=== PATIENT | female | born 1985 | race Caucasian/White ===

== ENCOUNTER 2016-08-08 10:01 | Emergency (ER) | payer MEDICAID ==
[2016-08-08 10:17] VITALS: BP 110/43
[2016-08-08] MEDS ORDERED: BUPIVACAINE HCL 0.5%-EPI 1:200000 INJ/PF 30 ML VIAL INJ ONE (10:53)
[2016-08-08] MEDS ORDERED: IBUPROFEN 800 MG TABLET PO ONE (10:54)
--- NOTE | 2016-08-08 10:59 | ER Document Report ---
ED General - General Chief Complaint: Toothache Stated Complaint: TOOTH PAIN TRAVEL OUTSIDE OF THE [place] IN LAST 30 DAYS: No - HPI Patient complains to provider of: dental pain Notes: Patient coming in for evaluation of dental pain. Patient was evaluated for dental pain previously does see a dentist and is scheduled to see oral medical facial surgeon for dental extraction on 47. Patient states since that time increased pain patient is requesting Percocet for pain control. Patient denies taking Tylenol Motrin for pain control denies fevers chills nausea vomiting - Related Data Allergies/Adverse Reactions: Penicillins Allergy (Verified 06/12/16 15:01) tramadol Allergy (Verified 06/12/16 15:01) Past Medical History - Social History Smoking Status: Unknown if Ever Smoked Family History: Arthritis, CAD, Hyperlipidemia, Hypertension Renal/ Medical History: Reports: Hx Kidney Stones, Hx Ovarian Cysts GI Medical History: Reports: Hx Gastritis, Hx Gastroesophageal Reflux Disease Musculoskeltal Medical History: Reports Hx Arthritis, Reports Hx Musculoskeletal Trauma Psychiatric Medical History: Reports: Hx Anxiety, Hx Depression, Hx Post Traumatic Stress Disorder Traumatic Medical History: Reports: Hx Fractures - Right arm Past Surgical History: Reports: Hx Abdominal Surgery - Exploratory lap-negative diagnosed interstitial cystitis, Hx Adenoidectomy, Hx Gynecologic Surgery, Hx Myringotomy, Hx Tonsillectomy - Immunizations Immunizations up to date: Yes Hx Diphtheria, Pertussis, Tetanus Vaccination: Yes Review of Systems - Review of Systems Constitutional: No symptoms reported EENT: Other - Dental pain Cardiovascular: No symptoms reported Respiratory: No symptoms reported Gastrointestinal: No symptoms reported Genitourinary: No symptoms reported Female Genitourinary: No symptoms reported Musculoskeletal: No symptoms reported Skin: No symptoms reported Hematologic/Lymphatic: No symptoms reported Neurological/Psychological: No symptoms reported -: Yes All other systems reviewed and negative Physical Exam - Vital signs Vitals: Temp Pulse Resp BP Pulse Ox 97.8 F 80 16 110/43 L 100 08/08/16 10:16 08/08/16 10:16 08/08/16 10:16 08/08/16 10:16 08/08/16 10:16 Interpretation: Normal - General General appearance: Appears well, Alert - HEENT Head: Normocephalic, Atraumatic Eyes: Normal Pupils: PERRL Nasal: Normal Mouth/Lips: Normal Mucous membranes: Normal Pharynx: Normal Neck: Normal Notes: Patient does have a dental Hayley tooth #31 no signs of gingival cellulitis no signs of dental abscess. - Respiratory Respiratory status: No respiratory distress Chest status: Nontender Breath sounds: Normal Chest palpation: Normal - Cardiovascular Rhythm: Regular Heart sounds: Normal auscultation Murmur: No - Abdominal Inspection: Normal Distension: No distension Bowel sounds: Normal Tenderness: Nontender Organomegaly: No organomegaly - Back Back: Normal, Nontender - Extremities General upper extremity: Normal inspection, Nontender, Normal color, Normal ROM , Normal temperature General lower extremity: Normal inspection, Nontender, Normal color, Normal ROM , Normal temperature, Normal weight bearing. No: Erum's sign - Neurological Neuro grossly intact: Yes Cognition: Normal Orientation: AAOx4 Leia Coma Scale Eye Opening: Spontaneous Leia Coma Scale Verbal: Oriented Leia Coma Scale Motor: Obeys Commands Wall Coma Scale Total: 15 Speech: Normal Motor strength normal: LUE, RUE, LLE, RLE Sensory: Normal - Psychological Associated symptoms: Normal affect, Normal mood - Skin Skin Temperature: Warm Skin Moisture: Dry Skin Color: Normal Course - Re-evaluation Re-evalutation: 08/08/16 15:08 Offered patient dental block and Tylenol 3 for her pain control. Patient initially accepted dental block then refused dental block. Patient also refused Tylenol 3. Explained to the patient that the only pain medication will give for dental pain is Motrin 800 and Tylenol 3. Patient states Tylenol 3 would not alleviate her pain. Explained to the patient that she can follow-up your dentist for further pain control. - Vital Signs Vital signs: Temp Pulse Resp BP Pulse Ox 97.8 F 80 16 110/43 L 100 08/08/16 10:16 08/08/16 10:16 08/08/16 10:16 08/08/16 10:16 08/08/16 10:16 Discharge - Discharge Clinical Impression: Toothache Condition: Good Disposition: HOME, SELF-CARE Instructions: Toothache ([facility]), [facility], Oral Narcotic Medication ([facility]), Chronic Pain Control ([facility]) Additional Instructions: Follow-up with your dentist for further evaluation of your dental pain. Take medications as prescribed Please be aware that this is a chronic condition which we do not provide pain medication for here in the ER. Subsequent visits to the ER may not result in specific pain medications being prescribed to you. Prescriptions: Acetaminophen with Codeine [Tylenol #3 Tablet] 1 each PO Q4HP PRN #10 tablet PRN Reason: Ibuprofen [Motrin 800 mg Tablet] 800 mg PO MEALS #90 tablet Forms: Return to Work
== END 2016-08-08 11:00 | disposition home or self-care (01) ==
LOC: ER 10:01
DX: K08.89 Other specified disorders of teeth and supporting structures (principal)
CPT/HCPCS: 99282

== ENCOUNTER 2016-08-13 14:14 | Outpatient (CLI) | payer MEDICAID ==
[2016-08-13 15:10] LABS: APPEARANCE,URINE CLEAR; BILIRUBIN,URINE NEGATIVE (NEGATIVE); GLUCOSE, URINE NEGATIVE (NEGATIVE); KETONES,URINE NEGATIVE (NEGATIVE); LEUKOCYTE ESTERASE,URINE MODERATE (NEGATIVE); NITRITE,URINE NEGATIVE (NEGATIVE); PROTEIN,URINE NEGATIVE (NEGATIVE); URINE SPECIFIC GRAVITY 1.009; UROBILINOGEN,URINE NEGATIVE mg/dL (<2.0)
[2016-08-13 15:23] LABS: ABSOLUTE EOSINOPHILS # (AUTO) 0.1 10^3/uL (0.0-0.6); ABSOLUTE LYMPHOCYTES (AUTO) 1.9 10^3/uL (0.5-4.7); ABSOLUTE MONOCYTES (AUTO) 0.5 10^3/uL (0.1-1.4); ABSOLUTE NEUT (AUTO) 6.5 10^3/uL (1.7-8.2); BASOPHILS % (AUTO) 0.1 % (0-2); EOSINOPHILS % (AUTO) 1.1 % (0-6); HEMATOCRIT 29.8 % (36.0-47.0); HEMOGLOBIN 9.8 g/dL (12.0-15.5); HGB HCT DIFFERENCE -0.4; LYMPHOCYTES % (AUTO) 20.8 % (13-45); MEAN CORPUSCULAR VOLUME 91 fl (80-97); RED BLOOD COUNT 3.28 10^6/uL (3.72-5.28); RED CELL DISTRIBUTION WIDTH 13.3 % (11.5-14.0); WHITE BLOOD COUNT 9.1 10^3/uL (4.0-10.5)
[2016-08-13 15:27] LABS: URINE BARBITURATES SCREEN NEGATIVE; URINE METHADONE SCREEN NEGATIVE; URINE PHENCYCLIDINE SCREEN NEGATIVE
[2016-08-13 15:33] LABS: ALANINE AMINOTRANSFERASE 17 U/L (9-52); ALBUMIN 3.6 g/dL (3.5-5.0); ALKALINE PHOSPHATASE 72 U/L (38-126); ASPARTATE AMINO TRANSFERASE 13 U/L (14-36); BILIRUBIN,TOTAL 0.3 mg/dL (0.2-1.3); LIPASE 32.8 U/L (23-300); TOTAL PROTEIN 5.6 g/dL (6.3-8.2)
[2016-08-13 15:35] LABS: AMYLASE < 30 U/L (30-110)
--- NOTE | 2016-08-13 16:00 | L&D Flow Sheet ---
LD Flowsheet Datetime Report Generated by CPN: 08/13/2016 16:00 Datetime: 08/13/2016 15:53 Patient Position/Activity: Right Tilt; Low Fowlers (Shaneka Sunflower, RN) Datetime: 08/13/2016 15:38 Vital Signs Stage of : Labor (Shaneka Davison, MÓNICA) NBP Sys/Olesya/Mean (mmHg): 99 (QS system process) : 55 (QS system process) : 73 (QS system process) Pulse: 68 (QS system process) Respirations: 14 (Shaneka Davison, MÓNICA) LaborFlag: Labor (QS system process) Datetime: 08/13/2016 15:30 Uterine Activity Monitor Mode: External (Shaneka Davison RN) Frequency (min): none (Shaneka Davison, MÓNICA) Resting Tone (Palpate): Relaxed (Shaneka Davison, MÓNICA) Contraction Comments: patient denies; no contrcations noted on monitor (Shaneka Davison RN) Assessment A Monitor Mode: External US (Shaneka Laney, RN) FHR Baseline Rate : 130 (Shaneka Sunflower, RN) FHR Baseline Changes: No Baseline Change (Shaneka Sunflower, RN) Variability: Moderate 6-25 bpm (Shaneka Sunflower, RN) Accelerations: 15X15 (Shaneka Laney, RN) Decelerations: None (Shaneka Laney, RN) Datetime: 08/13/2016 15:24 Communication Communication: Report Given to @ Ashtynricardo Conte, CNM (Shaneka Laney, RN) Provider Notified (Name): Ashtyn Conte CNM (Shaneka Davison RN) Notification Reason: Status Update; Status; Labor Status; Membrane Status; Uterine Activity; Lab/Diagnostic Study; Other (Shaneka Davison RN) Communication Comments: Informed of patient overall OB history, chief complaints, reactive FHT, blood pressure, and lab work. (Shaneka Davison RN) Datetime: 08/13/2016 15:13 Vital Signs Stage of : Labor (Shaneka Davison RN) NBP Sys/Olesya/Mean (mmHg): 83 (QS system process) : 44 (QS system process) : 58 (QS system process) Pulse: 72 (QS system process) Respirations: 16 (Shaneka Davison RN) LaborFlag: Labor (QS system process) Datetime: 08/13/2016 15:08 Vital Signs Stage of : Labor (Shaneka Laney, RN) NBP Sys/Olesya/Mean (mmHg): 89 (QS system process) : 49 (QS system process) : 65 (QS system process) Pulse: 73 (QS system process) Respirations: 12 (Shaneka Laney, RN) LaborFlag: Labor (QS system process) Datetime: 08/13/2016 15:00 Uterine Activity Monitor Mode: External; Palpation (Shaneka Laney, RN) Frequency (min): none (Shaneka Sunflower, RN) Resting Tone (Palpate): Relaxed (Shaneka Sunflower, RN) Contraction Comments: patient denies feeling contractions; no contractions noted on monitor (Shaneka Sunflower, RN) Assessment A Monitor Mode: External US (Shaneka Sunflower, RN) FHR Baseline Rate : 135 (Shaneka Laney, RN) FHR Baseline Changes: No Baseline Change (Shaneka Laney, RN) Variability: Moderate 6-25 bpm (Shaneka Sunflower, RN) Accelerations: 15X15 (Shaneka Laney, RN) Decelerations: None (Shaneka Laney, RN) Comments: reports positive movement; audible movement noted (Shaneka Sunflower, RN) Communication Communication: RN at Bedside (Shaneka Laney, RN) Datetime: 08/13/2016 14:44 Monitor Interventions for UA: Pierson Adjusted (Shaneka Sunflower, RN) Assessment A Monitor Mode: External US (Shaneka Laney, RN) Monitor Interventions for FHR: Ultrasound Adjusted (Shaneka Sunflower, RN) FHR Baseline Rate : 140 (Shaneka Sunflower, RN) Variability: Moderate 6-25 bpm (Shaneka Laney, RN) Accelerations: 15X15 (Shaneka Sunflower, RN) Decelerations: None (Shaneka Sunflower, RN) Pain Pain Scale: 5 (Shaneka Davison, RN) Pain Presence: Intermittent (Shaneka Davison, RN) Pain Type: Sharp (Shaneka Davison, RN) Pain Location: Abdomen; Back (Shaneka Davison, RN) Pain Goal: 1 (Shaneka Davison, RN) Pain Relief Measures: Comfort Measures (Shaneka Davison, RN) Vaginal Exam Vaginal Bleeding: None (Shaneka Davison, ) Maternal Assessment Level of Consciousness: Fully Conscious (Shaneka Davison, RN) DTR's/Clonus: DTRs 2+; No Clonus (Shaneka Davison, RN) Headache: Denies (Shaneka Davison, RN) Breath Sounds, Left: Clear and Equal (Shaneka Davison, RN) Breath Sounds, Right: Clear and Equal (Shaneka Davison, RN) Nausea/Vomiting: Present (Shaneka Davison, RN) RUQ Epigastric Pain: Present (Shaneka Davison, RN) Patient Care IV/Blood Work: Labs Drawn (Shaneka Davison RN) Oxygen Method: Room Air (Shaneka Davison RN) Patient Position/Activity: Left Tilt; Low Fowlers (Shaneka Davison, MÓNICA) Comfort Measures: Breathing/Relaxation; Family Support (Shaneka Davison RN) I/O Interventions: Clear Liquids Given (Shaneka Davison RN) Teaching Instructional Method: Verbal; Patient Instructed; Family/Support Person Instructed; Verbalized Understanding (Shaneka Davison RN) Plan of Care: Plan of Care Discussed (Shaneka Davison RN) Unit Routine: Gerald to Room; Call Cordero; Bed; Unit Personnel; Handwashing; Flu/Illness Precautions; Monitoring; Safety/Fall Risk Prevention; Bathroom Privileges (Shaneka Davison, MÓNICA) Pain Management: Pain Scale/Goals; Comfort Measures (Shaneka Davison RN) Related: Common Discomforts of ; Maternal Physical Changes; Maternal Emotional Changes; Nutrition; Hydration; Activity and Rest (Shaneka Davison RN) LaborFlag: Labor (QS system process) Datetime: 08/13/2016 14:38 NBP Sys/Olesya/Mean (mmHg): 97 (QS system process) : 50 (QS system process) : 68 (QS system process) Pulse: 59 (QS system process) LaborFlag: Labor (QS system process)
--- NOTE | 2016-08-14 04:45 | L&D Flow Sheet ---
LD Flowsheet Datetime Report Generated by CPN: 08/14/2016 04:45 Datetime: 08/13/2016 18:15 Stage of : Labor (Shaneka Davison RN) Provider Notified (Name): Dr. Whitney called and instructed for patient to followup for repeat abdominal ultrasound after delivery for re-evaluation and stability of gall bladder polyps. Also instructed to establish routine and compliant care. Patient was instructed to use warm compresses, OTC tylenol, and chiropractor for chronic low back pain. Patient was again offered Tylenol with codeine two tablets PO upon discharge of which she refused and stated "the only thing that helps is Percocet" which Dr. Whitney was asked and declined to order at this time. Patient appeared upset and crying as she left the unit. Patient was reassured and all questions answered. (Shaneka Davison RN) Datetime: 08/13/2016 18:04 Stage of : Labor (Jerica Jang RN) Provider Notified (Name): Dr. Whitney returned phone call and notified of abdominal ultrasound results of no gallstones, gallbladder wall thickening or pericholecystic fluid with Tiny gallbladder polyps are present. Stated he will call back with further orders (Jerica Jang RN) Datetime: 08/13/2016 18:00 Stage of : OB Triage (Shaneka Davison RN) Pain Scale: 3 (Shaneka Davison RN) Pain Presence: Intermittent (Annotations: chronic; tylenol offered; patient refused) (Shaneka Davison RN) Pain Type: Cramping; Sharp; Ache (Shaneka Davison RN) Pain Location: Back (Shaneka Davison RN) Pain Goal: 1 (Shaneka Davison RN) Pain Relief Measures: Comfort Measures (Shaneka Davison RN) LaborFlag: OB Triage (QS system process) Datetime: 08/13/2016 17:50 Stage of : Labor (Shaneka Davison RN) Communication: Call/Page Placed to Provider (Shaneka Davison RN) Provider Notified (Name): Dr. Whitney called; left message (Shaneka Davison RN) Datetime: 08/13/2016 17:12 Stage of : Labor (Shaneka Davison RN) Patient Position/Activity: Patient back to L_D room 3 from ultrasound. Awaiting ultrasound results (Shaneka Davison RN) Datetime: 08/13/2016 16:50 Stage of : Labor (Shaneka Davison RN) Patient Position/Activity: patient to ultrasound via wheelchair accompanied by Almaz Barbosa CNA and friend (Shaneka Davison RN)
--- NOTE | 2016-08-14 04:45 | Antepartum Discharge Summary ---
Antepartum DC Datetime Report Generated by CPN: 08/14/2016 04:45 DIET/ACTIVITY/RESTRICTIONS Diet: Regular (08/13/2016 18:29:Shaneka Davison, RN) Activity: Normal Activity (08/13/2016 18:29:Shaneka Perdueard, RN) TEACHING/INSTRUCTIONS/REFERRALS Instructions Given To: patient and friend (08/13/2016 18:29:Shaneka Davison, RN) Instructions Understood: Patient Verbalized Understanding; Support Person Verbalized Understanding (08/13/2016 18:29:Shaneka Davison RN) Referrals: None (08/13/2016 18:29:Shaneka Davison RN) Educational Materials- Other: kick counts and provided copy of abdominal ultrasound results with written instructions to followup for repeat ultrasound after deliverey of baby (08/13/2016 18:29:Shaneka Davison RN) DISCHARGE INFORMATION Discharged AMA: No (08/13/2016 18:29:Shaneka Davison RN) Discharge Date/Time: 08/13/2016 18:22 (08/13/2016 18:29:Shaneka Davison RN) Discharged To: Home (08/13/2016 18:29:Shaneka Davison RN) Discharge Provider Name: Dr. Whitney (08/13/2016 18:29:Shaneka Davison RN) Accompanied By: friend (08/13/2016 18:29:Shaneka Davison RN) Discharge Method: Ambulatory (08/13/2016 18:29:Shaneka Davison RN) Condition: Stable (08/13/2016 18:29:Shaneka Davison RN) FOLLOW UP INFORMATION Follow Up With: Other-Annotate (08/13/2016 18:29:Shaneka Davison RN) Follow Up On: As Scheduled (08/13/2016 18:29:Shaneka Davison RN) Follow Up Phone Number: [place] (08/13/2016 18:29:Shaneka Davison RN)
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
--- NOTE | 2016-08-14 04:45 | L&D Admission Assessment ---
LD ADM ASMT Datetime Report Generated by CPN: 08/14/2016 04:45 PATIENT ASSESSMENT Assessment Type: Triage (08/13/2016 14:44:Shaneka Davison, RN) WEIGHT Weight (lb): 150 (08/13/2016 14:29:QS system process) Weight (kg): 68.2 (08/13/2016 14:29:QS system process) BMI: 27.4 (08/13/2016 14:29:QS system process) PAIN Pain Scale: 3 (08/13/2016 18:00:Shaneka Davison RN) Pain Scale: 3 (08/13/2016 16:00:Shaneka Davison RN) Pain Scale: 5 (08/13/2016 14:44:Shaneka Davison RN) Pain Presence: Intermittent (Annotations: chronic; tylenol offered; patient refused) (08/13/2016 18:00:Shaneka Davison RN) Pain Presence: Chronic (08/13/2016 16:00:Shaneka Davison RN) Pain Presence: Chronic (Annotations: intermittent) (08/13/2016 14:44:Shaneka Davison RN) Pain Type: Cramping; Sharp; Ache (08/13/2016 18:00:Shaneka Davison RN) Pain Type: Cramping; Sharp; Ache (08/13/2016 16:00:Shaneka Davison RN) Pain Type: Sharp (08/13/2016 14:44:Shaneka Davison RN) Pain Location: Back (08/13/2016 18:00:Shaneka Davison RN) Pain Location: Back (08/13/2016 16:00:Shaneka Davison RN) Pain Location: Abdomen; Back (08/13/2016 14:44:Shaneka Davison RN) Pain Goal: 1 (08/13/2016 18:00:Shaneka Davison RN) Pain Goal: 1 (08/13/2016 16:00:Shaneka Davison RN) Pain Goal: 1 (08/13/2016 14:44:Shaneka Davison RN) Pain Related to Contraction: No (08/13/2016 14:44:Shaneka Davison RN) CONTRACTIONS Frequency (min): x1 (08/13/2016 16:11:Shaneka Davison RN) Frequency (min): none (08/13/2016 15:30:Shaneka Davison RN) Frequency (min): none (08/13/2016 15:00:Shaneka Davison, MÓNICA) Duration (sec): 60 (08/13/2016 16:11:Shaneka Davison RN) Resting Tone [place]: Relaxed (08/13/2016 16:11:Shaneka Davison RN) Resting Tone [place]: Relaxed (08/13/2016 15:30:Shaneka Davison RN) Resting Tone [place]: Relaxed (08/13/2016 15:00:Shaneka Davison RN) Contraction Comments: irregular patient; patient denies feeling contractions (08/13/2016 16:11:Shaneka Davison RN) Contraction Comments: patient denies; no contrcations noted on monitor (08/13/2016 15:30:Shaneka Davison RN) Contraction Comments: patient denies feeling contractions; no contractions noted on monitor (08/13/2016 15:00:Shaneka Davison RN) NEURO Level of Consciousness: Fully Conscious (08/13/2016 14:44:Shaneka Davison RN) DTR's/Clonus: DTRs 2+; No Clonus (08/13/2016 14:44:Shaneka Davison RN) Headache: Denies (08/13/2016 14:44:Shaneka Davison RN) Dizziness: No (08/13/2016 14:44:Shaneka Davison RN) Blurred Vision: No (08/13/2016 14:44:Shaneka Davison RN) Extremity Numbness/Tingling : None (08/13/2016 14:44:Shaneka Davison RN) Extremity Movement: Full Range of Motion (08/13/2016 14:44:Shaneka Davison RN) CARDIOVASCULAR Heart Rhythm: Regular (08/13/2016 14:44:Shaneka Davison RN) Nailbeds: [place] (08/13/2016 14:44:Shaneka Davison RN) Capillary Refill: Less than 3 Seconds (08/13/2016 14:44:Shaneka Davison RN) Lower Extremities Edema: None (08/13/2016 14:44:Shaneka Davison RN) Lower Extremities Edema Degree: None (08/13/2016 14:44:Shaneka Davison RN) Upper Extremities Edema: None (08/13/2016 14:44:Shaneka Davison RN) Upper Extremities Edema Degree: None (08/13/2016 14:44:Shaneka Davison RN) Facial Edema: None (08/13/2016 14:44:Shaneka Davison RN) Erum's Sign Left Leg: Negative (08/13/2016 14:44:Shaneka Davison RN) Erum's Sign Right Leg: Negative (08/13/2016 14:44:Shaneka Davison RN) DVT RISK ASSESSMENT DVT Risk Age: Age less than 41 years (08/13/2016 14:44:Shaneka Davison RN) DVT Risk BMI: BMI<31 (08/13/2016 14:44:Shaneka Davison RN) DVT Risk Surgery: Laparoscopic Surgery (>60 minutes) (08/13/2016 14:44:Shaneka Davison RN) DVT Risk Other: Women Only- or (<1 month) (08/13/2016 14:44:Shaneka Davison RN) DVT Risk Total: 3 (08/13/2016 14:44:QS system process) DVT Risk Text: High Risk (20-40%)- Consider stockings, compresssion device, pharmacological therapy per hospital policy (08/13/2016 14:44:QS system process) RESPIRATORY Respiratory Effort: Unlabored; Regular Rhythm (08/13/2016 14:44:Shaneka Davison RN) Breath Sounds, Left: Clear and Equal (08/13/2016 14:44:Shaneka Davison RN) Breath Sounds, Right: Clear and Equal (08/13/2016 14:44:Shaneka Davison RN) Cough Productivity: None (08/13/2016 14:44:Shaneka Davison RN) GASTROINTESTINAL Nausea/Vomiting: Present (08/13/2016 14:44:Shaneka Davison RN) Bowel Sounds: Normoactive; All Quadrants (08/13/2016 14:44:Shaneka Davison RN) RUQ Epigastric Pain: Present (08/13/2016 14:44:Shaneka Davison RN) Response to Antacids: Pain Relieved (08/13/2016 14:44:Shaneka Davsion RN) Bowel Patterns: Soft, Formed Stool (08/13/2016 14:44:Shaneka Davison RN) Hemorrhoids: None (08/13/2016 14:44:Shaneka Davison RN) Diet Type: Regular diet (08/13/2016 14:44:Shaneka Davison RN) Last Meal: 08/12/2016 20:00 (08/13/2016 14:44:Shaneka Davison RN) GENITOURINARY Bladder: Nondistended (08/13/2016 14:44:Shaneka Davison, MÓNICA) Frequency of Urination: No (08/13/2016 14:44:Shaneka Davison RN) Urination Burning: No (08/13/2016 14:44:Shaneka Davison, MÓNICA) CVA Tenderness: Yes (08/13/2016 14:44:Shaneka Davison RN) Vaginal Bleeding: None (08/13/2016 14:44:Shaneka Davison RN) Vaginal Discharge Amount: None (08/13/2016 14:44:Shaneka Davison, MÓNICA) Vaginal Discharge Color: N/A (08/13/2016 14:44:Shaneka Davison RN) Vaginal Discharge Character: None (08/13/2016 14:44:Shaneka Davison RN) INTEGUMENTARY Skin Color: Normal for Race (08/13/2016 14:44:Shaneka Davison, MÓNICA) Skin Temperature: Warm (08/13/2016 14:44:Shaneka Davison, ) Skin Moisture: Dry (08/13/2016 14:44:Shaneka Davison, ) JORDON SKIN ASSESSMENT Jordon Scale Sensory Perception: No Impairment- Responds to verbal commands. Has no sensory deficit which would limit ability to feel or voice pain or discomfort (08/13/2016 14:44:Shaneka Davison RN) Jordon Scale Moisture: Rarely Moist- Skin is usually dry. Linen only requires changing at routine intervals (08/13/2016 14:44:Shaneka Davison RN) Jordon Scale Activity: Walks Frequently- Walks outside the room at least twice a day and inside room at least every 2 hours during the day. (08/13/2016 14:44:Shaneka Davison RN) Jordon Scale Mobility: No Limitations- Makes major and frequent changes in position without assistance (08/13/2016 14:44:Shaneka Davison RN) Jordon Scale Nutrition: Excellent- Eats most of every meal. Never refuses a meal. Usually eats a total of 4 or more servings of meat and dairy products. Occasionally eats between meals. Does not require supplementation (08/13/2016 14:44:Shaneka Davison RN) Jordon Scale Friction and Shear: No Apparent Problem- Moves in bed and in chair independently and has sufficient muscle strength to lift up completely during move. Maintains good position in bed or chair at all times (08/13/2016 14:44:Shaneka Davison RN) Jordon Scale Total: 23 (08/13/2016 14:44:QS system process) Jordon Scale Risk: No Risk of Pressure Ulcer Noted at this Time (08/13/2016 14:44:QS system process) SUPPORT Family Support: Significant Other supportive, at bedside frequently; Family supportive (08/13/2016 14:44:Shaneka Davison RN) Emotional State: Calm/Relaxed (08/13/2016 14:44:Shaneka Davison RN) SAFETY Call [place] Within Reach: Yes (08/13/2016 14:44:Shaneka Davison RN) Side Rails Up: Yes (08/13/2016 14:44:Shaneka Davison RN) Bed Wheels Locked: Yes (08/13/2016 14:44:Shaneka Davison RN) Arm Bands Present: Yes (08/13/2016 14:44:Shaneka Davison RN) Isolation: [place] (08/13/2016 14:44:Shaneka Davison RN) FALL SCREEN Fall Risk History of Falling: (0) No (08/13/2016 14:44:Shaneka Davison RN) Fall Risk Secondary Diagnosis: (0) No (08/13/2016 14:44:Shaneka Davison RN) Fall Risk Ambulatory Aid: (0) None/Bedrest/Wheelchair/Nurse Assist (08/13/2016 14:44:Shaneka Davison RN) Fall Risk IV Therapy: (0) No (08/13/2016 14:44:Shaneka Davison RN) Fall Risk Gait: (0) Normal/Bedrest/Immobile (08/13/2016 14:44:Shaneka Davison RN) Fall Risk Mental Status: (0) Oriented to Own Ability (08/13/2016 14:44:Shaneka Davison RN) Fall Risk Score: 0 (08/13/2016 14:44:QS system process) Fall Risk Score Definition: No Risk: No action required (08/13/2016 14:44:QS system process) RECENT TRAVEL/INFECTIOUS DISEASE Recent Exp Communicable Disease: No (08/13/2016 14:44:Shaneka Davison RN) Cough or Fever: No (08/13/2016 14:44:Shaneka Davison RN) Foreign Travel Past 10 Days: No (08/13/2016 14:44:Shaneka Davison RN) Open Wounds or Sores: No (08/13/2016 14:44:Shaneka Davison RN) Prior Antibiotic Resistance Tx: No (08/13/2016 14:44:Shaneka Davison RN) Cultures Obtained: Not Applicable (08/13/2016 14:44:Shaneka Davison RN) Isolation Initiated: No (08/13/2016 14:44:Shaneka Davison RN) Pt/Family Education: Not Applicable (08/13/2016 14:44:Shaneka Davison RN) BABY A FHR Baseline Rate (bpm) Baby A: 135 (08/13/2016 16:11:Shaneka Davison RN) FHR Baseline Rate (bpm) Baby A: 130 (08/13/2016 15:30:Shaneka Daivson RN) FHR Baseline Rate (bpm) Baby A: 135 (08/13/2016 15:00:Shaneka Davison RN) FHR Baseline Rate (bpm) Baby A: 140 (08/13/2016 14:44:Shaneka Davison RN) Variability Baby A: Moderate 6-25 bpm (08/13/2016 16:11:Shaneka Davison RN) Variability Baby A: Moderate 6-25 bpm (08/13/2016 15:30:Shaneka Davison RN) Variability Baby A: Moderate 6-25 bpm (08/13/2016 15:00:Shaneka Davison RN) Variability Baby A: Moderate 6-25 bpm (08/13/2016 14:44:Shaneka Davison RN) Accelerations Baby A: 15X15 (08/13/2016 16:11:Shaneka Davison RN) Accelerations Baby A: 15X15 (08/13/2016 15:30:Shaneka Davison RN) Accelerations Baby A: 15X15 (08/13/2016 15:00:Shaneka Davison RN) Accelerations Baby A: 15X15 (08/13/2016 14:44:Shaneka Davison RN) Decelerations Baby A: None (08/13/2016 16:11:Shaneka Davison RN) Decelerations Baby A: None (08/13/2016 15:30:Shaneka Davison RN) Decelerations Baby A: None (08/13/2016 15:00:Shaneka Davison RN) Decelerations Baby A: None (08/13/2016 14:44:Shaneka Davison RN)
--- NOTE | 2016-08-14 04:45 | L&D Discharge Summary ---
OB Discharge Summary Datetime Report Generated by CPN: 08/14/2016 04:45 DISCHARGE DIAGNOSIS Diagnosis/Symptoms: Abdominal Pain Diagnoses/Symptoms Other: gallbladder polyps Gestation: 31.2 Number of Babies in Womb: 1 Parity: 4 DIET/ACTIVITY/RESTRICTIONS Diet: Regular Activity: Normal Activity TEACHING/INSTRUCTIONS/REFERRALS Instructions Given To: patient and friend Instructions Understood: Patient Verbalized Understanding; Support Person Verbalized Understanding Referrals: None Educational Materials- Other: kick counts and provided copy of abdominal ultrasound results with written instructions to followup for repeat ultrasound after deliverey of baby DISCHARGE INFORMATION Discharged AMA: No Discharge Date/Time: 08/13/2016 18:22 Discharged To: Home Discharge Provider Name: Dr. Whitney Accompanied By: friend Discharge Method: Ambulatory Condition: Stable FOLLOW UP INFORMATION Follow Up With: Other-Annotate Follow Up On: As Scheduled Follow Up Phone Number: Other-Annotate
--- NOTE | 2016-08-14 04:45 | L&D Current Admission ---
Current Admit Datetime Report Generated by CPN: 08/14/2016 04:45 ADMISSION INFORMATION Chief Complaint: Back Pain; Epigastric Pain; Nausea (Annotations: intermittent epigastric/right upper abdominal pain with nausea that worsens after eating which has occurred for the past 2 weeks and worsening symtpoms over the past 24 hours; constant lower back pain for the past 2 weeks) (08/13/2016 14:44:Shaneka Davison RN) Chief Complaint: Other (Annotations: Stabbing intermittent pelvic pain) (06/12/2016 15:11:Sue Holder RN)
== END 2016-08-13 18:22 | disposition home or self-care (01) ==
LOC: LC 14:14
PROVIDERS: ATTEND Obstetrics & Gynecology
PROC: 4A1HXCZ Monitoring of Products of Conception, Cardiac Rate, External Approach (ICD-10-PCS; principal; 2016-08-13)
DX: O26.893 Other specified pregnancy related conditions, third trimester (principal); R10.9 Unspecified abdominal pain; O99.613 Diseases of the digestive system complicating pregnancy, third trimester; K82.4 Cholesterolosis of gallbladder; Z3A.31 31 weeks gestation of pregnancy
CPT/HCPCS: 36415; 76705; 80076; 80307; 81001; 82150; 83690; 85025

== ENCOUNTER 2016-08-19 16:44 | Emergency (ER) | payer MEDICAID ==
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
--- NOTE | 2016-08-19 19:31 | ER Document Report ---
ED General - General Chief Complaint: back and shoulder pain Stated Complaint: BACK AND SHOULDER PAIN Mode of Arrival: Ambulatory Information source: Patient Notes: 30-year-old female presents with complaints of right shoulder upper back pain. Patient notes she was moving a large object denies any neurological deficits denies any trauma otherwise. Patient denies any numbness weakness loss of bowel or bladder function TRAVEL OUTSIDE OF THE [place] IN LAST 30 DAYS: No - HPI Onset: Yesterday Onset/Duration: Persistent Quality of pain: Achy Severity: Mild Pain Level: 1 Associated symptoms: None Exacerbated by: Movement Relieved by: Denies Similar symptoms previously: Yes Recently seen / treated by doctor: Yes - Related Data Allergies/Adverse Reactions: Penicillins Allergy (Verified 08/13/16 14:28) tramadol Allergy (Verified 08/13/16 14:28) Past Medical History - Social History Smoking Status: Current Every Day Smoker Cigarette use (# per day): Yes Chew tobacco use (# tins/day): No Smoking Education Provided: Yes - Patient counselled regarding cessation for 4 minutes Family History: Arthritis, CAD, Hyperlipidemia, Hypertension Patient has suicidal ideation: No Patient has homicidal ideation: No Renal/ Medical History: Reports: Hx Kidney Stones, Hx Ovarian Cysts. Denies: Hx Peritoneal Dialysis GI Medical History: Reports: Hx Gastritis, Hx Gastroesophageal Reflux Disease Musculoskeltal Medical History: Reports Hx Arthritis, Reports Hx Musculoskeletal Trauma Psychiatric Medical History: Reports: Hx Anxiety, Hx Depression, Hx Post Traumatic Stress Disorder Traumatic Medical History: Reports: Hx Fractures - Right arm Past Surgical History: Reports: Hx Abdominal Surgery - Exploratory lap-negative diagnosed interstitial cystitis, Hx Adenoidectomy, Hx Gynecologic Surgery, Hx Myringotomy, Hx Tonsillectomy - Immunizations Immunizations up to date: Yes Hx Diphtheria, Pertussis, Tetanus Vaccination: Yes Review of Systems - Review of Systems Notes: REVIEW OF SYSTEMS: CONSTITUTIONAL : Denies fever, chills, or sweats. Denies recent illness. EENT: Denies eye, ear, throat, or mouth pain or symptoms. Denies nasal or sinus congestion or discharge. Denies throat, tongue, or mouth swelling or difficulty swallowing. CARDIOVASCULAR: Denies chest pain. Denies palpitations or racing or irregular heart beat. Denies ankle edema. RESPIRATORY: Denies cough, cold, or chest congestion. Denies shortness of breath, difficulty breathing, or wheezing. GASTROINTESTINAL: Denies abdominal pain or distention. Denies nausea, vomiting , or diarrhea. Denies blood in vomitus, stools, or per rectum. Denies black, tarry stools. Denies constipation. GENITOURINARY: Denies difficulty urinating, painful urination, burning, frequency, blood in urine, or discharge. FEMALE GENITOURINARY: Denies vaginal bleeding, heavy or abnormal periods, irregular periods. Denies vaginal discharge or odor. MUSCULOSKELETAL: Admits to upper back pain SKIN: Denies rash, lesions or sores. HEMATOLOGIC : Denies easy bruising or bleeding. LYMPHATIC: Denies swollen, enlarged glands. NEUROLOGICAL: Denies confusion or altered mental status. Denies passing out or loss of consciousness. Denies dizziness or lightheadedness. Denies headache. Denies weakness or paralysis or loss of use of either side. Denies problems with gait or speech. Denies sensory loss, numbness, or tingling. Denies seizures. PSYCHIATRIC: Denies anxiety or stress. Denies depression, suicidal ideation, or homicidal ideation. ALL OTHER SYSTEMS REVIEWED AND NEGATIVE. Dictation was performed using [employer] voice recognition software PHYSICAL EXAMINATION: GENERAL: Well-appearing, well-nourished and in no acute distress. HEAD: Atraumatic, normocephalic. EYES: Pupils equal round and reactive to light, extraocular movements intact, conjunctiva are normal. ENT: Nares patent, oropharynx clear without exudates. Moist mucous membranes. NECK: Normal range of motion, supple without lymphadenopathy or tenderness on palpation in the T4-T5 region, no step-off no deformities LUNGS: Breath sounds clear to auscultation bilaterally and equal. No wheezes rales or rhonchi. HEART: Regular rate and rhythm without murmurs ABDOMEN: Soft, nontender, nondistended abdomen. No guarding, no rebound. No masses appreciated. Female : deferred Musculoskeletal: Normal range of motion, no pitting or edema. No cyanosis. NEUROLOGICAL: Cranial nerves grossly intact. Normal speech, normal gait. Normal sensory, motor exams PSYCH: Normal mood, normal affect. SKIN: Warm, Dry, normal turgor, no rashes or lesions noted. Physical Exam - Vital signs Vitals: Temp Pulse Resp BP Pulse Ox 98.3 F 73 18 94/55 L 100 08/19/16 17:03 08/19/16 17:03 08/19/16 17:03 08/19/16 17:03 08/19/16 17:03 Course - Re-evaluation Re-evalutation: 08/19/16 19:31 Physical examination notes no significant abnormality, patient will be given pain control and relaxer otherwise is stable for discharge After performing a Medical Screening Examination, I estimate there is LOW risk for EXPANDING OR RUPTURED ABDOMINAL AORTIC ANEURYSM, CAUDA EQUINA SYNDROME, EPIDURAL MASS LESION, or HERNIATED DISK CAUSING SEVERE SPINAL STENOSIS, thus I consider the discharge disposition reasonable. The patient and I have discussed the diagnosis and risks, and we agree with discharging home and close follow-up. We also discussed returning to the Emergency Department immediately if new or worsening symptoms occur with the understanding that symptoms and presentations can change. We have discussed the symptoms which are most concerning (e.g., saddle anesthesia, urinary or bowel incontinence or retention , changing or worsening pain) that necessitate immediate return. 08/19/16 19:33 - Vital Signs Vital signs: Temp Pulse Resp BP Pulse Ox 98.3 F 73 18 94/55 L 100 08/19/16 17:03 08/19/16 17:03 08/19/16 17:03 08/19/16 17:03 08/19/16 17:03 Discharge - Discharge Clinical Impression: Encounter for smoking cessation counseling Acute strain of neck muscle Qualifiers: Encounter type: initial encounter Qualified Code(s): S16.1XXA - Strain of muscle, fascia and tendon at neck level, initial encounter Condition: Stable Disposition: HOME, SELF-CARE Instructions: Muscle Strain ([facility]) Additional Instructions: You have been given follow up instructions including low cost follow up with one of the local primary care offices. Follow up with them tomorrow for further care and reevaluation. Return immediately if symptoms worsen Prescriptions: Cyclobenzaprine HCl [Flexeril 5 mg Tablet] 5 mg PO TID #15 tablet Oxycodone HCl/Acetaminophen [Percocet 5-325 mg Tablet] 1 - 2 tab PO Q4H PRN #8 tablet PRN Reason:
[2016-08-19 19:59] VITALS: BP 102/53
== END 2016-08-19 19:41 | disposition home or self-care (01) ==
LOC: ER 16:44
DX: S16.1XXA Strain of muscle, fascia and tendon at neck level, initial encounter (principal); M25.511 Pain in right shoulder; M54.9 Dorsalgia, unspecified; X58.XXXA Exposure to other specified factors, initial encounter; Y93.89 Activity, other specified; Z88.0 Allergy status to penicillin; Z88.5 Allergy status to narcotic agent; F17.210 Nicotine dependence, cigarettes, uncomplicated; Z71.6 Tobacco abuse counseling
CPT/HCPCS: 99283; 99406

== ENCOUNTER 2016-09-02 18:26 | Outpatient (CLI) | payer MEDICAID ==
[2016-09-02 19:04] LABS: APPEARANCE,URINE CLEAR; BILIRUBIN,URINE NEGATIVE (NEGATIVE); GLUCOSE, URINE NEGATIVE (NEGATIVE); KETONES,URINE 300 mg/dL (NEGATIVE); LEUKOCYTE ESTERASE,URINE SMALL (NEGATIVE); NITRITE,URINE NEGATIVE (NEGATIVE); PROTEIN,URINE NEGATIVE (NEGATIVE); UROBILINOGEN,URINE NEGATIVE mg/dL (<2.0)
[2016-09-02 19:49] LABS: URINE BARBITURATES SCREEN NEGATIVE; URINE METHADONE SCREEN NEGATIVE; URINE PHENCYCLIDINE SCREEN NEGATIVE
[2016-09-02 19:56] LABS: URINE OPIATES LOW UNCONFIRMED POSITIVE
== END 2016-09-02 19:54 | disposition home or self-care (01) ==
LOC: LC 18:26
PROVIDERS: ATTEND Obstetrics & Gynecology
PROC: 4A1HXCZ Monitoring of Products of Conception, Cardiac Rate, External Approach (ICD-10-PCS; principal; 2016-09-02)
DX: Z34.93 Encounter for supervision of normal pregnancy, unspecified, third trimester (principal); Z36 Encounter for antenatal screening of mother; Z3A.34 34 weeks gestation of pregnancy
CPT/HCPCS: 59025; 80307; 81001

== ENCOUNTER 2016-09-20 18:46 | Outpatient (CLI) | payer MEDICAID ==
[2016-09-20 19:40] LABS: APPEARANCE,URINE SLIGHTLY-CLOUDY; BILIRUBIN,URINE NEGATIVE (NEGATIVE); CALCIUM OXALATE CRYSTALS,URINE FEW /HPF; GLUCOSE, URINE NEGATIVE (NEGATIVE); KETONES,URINE NEGATIVE (NEGATIVE); LEUKOCYTE ESTERASE,URINE SMALL (NEGATIVE); NITRITE,URINE NEGATIVE (NEGATIVE); PROTEIN,URINE NEGATIVE (NEGATIVE); UROBILINOGEN,URINE NEGATIVE mg/dL (<2.0)
[2016-09-20 19:48] LABS: URINE BARBITURATES SCREEN NEGATIVE; URINE METHADONE SCREEN NEGATIVE; URINE OPIATES LOW NEGATIVE; URINE PHENCYCLIDINE SCREEN NEGATIVE
--- NOTE | 2016-09-20 20:00 | L&D Flow Sheet ---
LD Flowsheet Datetime Report Generated by CPN: 09/20/2016 20:00 Datetime: 09/20/2016 19:43 Vital Signs NBP Sys/Olesya/Mean (mmHg): 105 (QS system process) : 58 (QS system process) : 75 (QS system process) Pulse: 65 (QS system process) Communication LaborFlag: OB Triage (QS system process) Datetime: 09/20/2016 19:15 Pain Pain Scale: 3 (Estrella Judlatt, RN) Pain Presence: Constant (Estrella Judlatt, RN) Pain Type: Pressure; Ache (Estrella Marlatt, RN) Pain Location: Right Leg; Left Leg; Other (Annotations: pelvis) (Estrella Marlatt, RN) Vaginal Exam Vaginal Bleeding: None (Estrella Marlatt, RN) Maternal Assessment Level of Consciousness: Fully Conscious (Estrella Marlatt, RN) DTR's/Clonus: DTRs 2+; No Clonus (Estrella Marlatt, RN) Headache: Denies (Estrella Marlatt, RN) Breath Sounds, Left: Clear and Equal (Estrella Marlatt, RN) Breath Sounds, Right: Clear and Equal (Estrella Marlatt, RN) Nausea/Vomiting: Denies (Estrella Marlatt, RN) RUQ Epigastric Pain: Denies (Estrella Marlatt, RN) Teaching Instructional Method: Demo; Verbal; Patient Instructed; Family/Support Person Instructed; Verbalized Understanding (Estrella Marlatt, RN) Plan of Care: Plan of Care Discussed (Estrella Desai RN) Unit Routine: [place] to Room; Call Cordero; Bed; Monitoring (Estrella Desai, RN) Communication LaborFlag: OB Triage (QS system process) Datetime: 09/20/2016 19:12 Vital Signs NBP Sys/Olesya/Mean (mmHg): 104 (QS system process) : 63 (QS system process) : 77 (QS system process) Pulse: 65 (QS system process) Communication LaborFlag: OB Triage (QS system process)
--- NOTE | 2016-09-20 20:11 | Non Stress Test Report ---
Non Stress Test Datetime Report Generated by CPN: 09/20/2016 20:11 DEMOGRAPHIC Test Number: 2 EGA NST: 36.5 INDICATION Indication for Study: Other Indication for Study (NST) Other: LC MONITORING Monitor Explained: Monitor Explained; Test Explained; Patient Verbalized Understanding; Other Time on Monitor: 09/20/2016 19:09 Time off Monitor: 09/20/2016 19:51 NST Duration: 42 NST INTERVENTIONS NST Interventions: PO Hydration Physician Notified NST: Dr. Beauchamp BABY A Movement : Present Contraction Frequency : 0 FHR Baseline : 130 Accelerations : 15X15 Decelerations : Variable Variability : Moderate 6-25bpm NST Review: Meets Criteria for Reactive NST NST Review and Verified By : Betsy Desai RN NST Results: Reactive NST REPORT Report Trigger: Send Report
== END 2016-09-20 19:55 | disposition home or self-care (01) ==
LOC: LC 18:46
PROVIDERS: ATTEND Obstetrics & Gynecology
PROC: 4A1HXCZ Monitoring of Products of Conception, Cardiac Rate, External Approach (ICD-10-PCS; principal; 2016-09-20)
DX: O47.03 False labor before 37 completed weeks of gestation, third trimester (principal); Z3A.36 36 weeks gestation of pregnancy
CPT/HCPCS: 59025; 80307; 81001

== ENCOUNTER 2016-09-27 13:47 | Outpatient (CLI) | payer MEDICAID ==
[2016-09-27 14:50] LABS: APPEARANCE,URINE SLIGHTLY-CLOUDY; BILIRUBIN,URINE NEGATIVE (NEGATIVE); GLUCOSE, URINE NEGATIVE (NEGATIVE); KETONES,URINE NEGATIVE (NEGATIVE); LEUKOCYTE ESTERASE,URINE SMALL (NEGATIVE); NITRITE,URINE NEGATIVE (NEGATIVE); PROTEIN,URINE NEGATIVE (NEGATIVE); URINE SPECIFIC GRAVITY 1.011; UROBILINOGEN,URINE NEGATIVE mg/dL (<2.0)
[2016-09-27 15:10] LABS: URINE BARBITURATES SCREEN NEGATIVE; URINE METHADONE SCREEN NEGATIVE; URINE OPIATES LOW NEGATIVE; URINE PHENCYCLIDINE SCREEN NEGATIVE
--- NOTE | 2016-09-27 16:00 | L&D Flow Sheet ---
LD Flowsheet Datetime Report Generated by CPN: 09/27/2016 16:00 Datetime: 09/27/2016 15:12 NBP Sys/Olesya/Mean (mmHg): 95 (QS system process) : 51 (QS system process) : 66 (QS system process) Pulse: 58 (QS system process) LaborFlag: OB Triage (QS system process) Datetime: 09/27/2016 14:50 Stage of : OB Triage (Luma Ruiz, RN) Respirations: 18 (Luma Ruiz RN) Monitor Mode: External (Luma Ruiz RN) Frequency (min): NONE (Luma Ruiz RN) Resting Tone (Palpate): Relaxed (Luma Ruiz RN) Monitor Mode: External US (Luma Ruiz RN) FHR Baseline Rate : 130 (Luma Ruiz RN) FHR Baseline Changes: No Baseline Change (Luma Ruiz RN) Variability: Moderate 6-25 bpm (Luma Ruiz RN) Accelerations: 15X15 (Luma Ruiz RN) Decelerations: None (Luma Ruiz RN) Pain Scale: 4 (Luma Ruiz RN) Pain Presence: Constant (Luma Ruiz RN) Pain Type: Cramping; Sharp; Contraction; Pressure; Ache (Luma Ruiz RN) Pain Location: Abdomen; Back (Luma Ruiz RN) Pain Relief Measures: Comfort Measures (Luma Ruiz RN) Membrane Status: Intact (Luma Ruiz RN) Vaginal Bleeding: None (Luma Ruiz RN) Dilatation (cm): Closed (Luma Ruiz RN) Effacement: 40-50_ effaced (Luma Ruiz, MÓNICA) Station: minus 1 to 0 (Luma Ruiz RN) Consistency: Soft (Luma Ruiz RN) Position: Posterior (Luma Ruiz RN) Total Gonsalez's Score: 5 (QS system process) : 5-8 = Small percentage of induction failure (QS system process) Level of Consciousness: Fully Conscious (Luma Ruiz RN) DTR's/Clonus: DTRs 2+; No Clonus (Luma Ruiz RN) Headache: Denies (Luma Ruiz RN) Nausea/Vomiting: Denies (Luma Ruiz RN) RUQ Epigastric Pain: Denies (Luma Ruiz RN) Patient Position/Activity: Left Tilt; Low Fowlers (Luma Ruiz RN) I/O Interventions: Popsicle; Clear Liquids Given (Luma Ruiz RN) Instructional Method: Verbal; Patient Instructed; Verbalized Understanding (Luma Ruiz RN) Plan of Care: Labor (Luma Ruiz RN) Labor/Induction: Labor Stages (Luma Ruiz RN) Pain Management: Comfort Measures (Luma Ruiz RN) Communication: RN at Bedside; RN Reviewed Strip (Luma Ruiz RN) LaborFlag: OB Triage (QS system process) Datetime: 09/27/2016 14:41 NBP Sys/Olesya/Mean (mmHg): 107 (QS system process) : 66 (QS system process) : 82 (QS system process) Pulse: 81 (QS system process) LaborFlag: OB Triage (QS system process) Datetime: 09/27/2016 14:20 Stage of : OB Triage (Luma Ruiz RN) Respirations: 18 (Luma Nava Roulund, RN) Monitor Mode: External (Luma Ruiz, RN) Monitor Interventions for UA: [place] Adjusted (Luma Ruiz, RN) Resting Tone (Palpate): Relaxed (Luma Ruiz, RN) Monitor Mode: External US (Luma Ruiz RN) Monitor Interventions for FHR: Ultrasound Adjusted (Luma Ruiz, RN) FHR Baseline Rate : 130 (Luma Ruiz, RN) Pain Scale: 4 (Luma Ruiz, MÓNICA) Pain Presence: Intermittent (Luma Ruiz, RN) Pain Type: Sharp; Contraction; Pressure; Ache (Luma Ruiz, RN) Pain Location: Abdomen; Back (Luma Ruiz, RN) Pain Relief Measures: Comfort Measures (Luma Ruiz, MÓNICA) Pain Assessment Comments: PT DOES NOT APPEAR IN GREAT DISTRESS, TALKING _ MOVING WITH EASE. (Luma Ruiz, MÓNICA) Dilatation (cm): 0.5 (Luma Ruiz RN) Effacement (%): 50 (Luma Ruiz, RN) Station: 0 (Luma Ruiz, RN) Exam by: MELISSA RUIZ RN (Luma Ruiz, RN) Membrane Status: Intact (Luma Ruiz, RN) Procedures: Sterile Vag Exam (Luma Ruiz, RN) Patient Position/Activity: Left Tilt; Low Fowlers (Luma Ruiz, RN) Comfort Measures: Family Support (Luma Ruiz, RN) I/O Interventions: Up to BR (Luma Ruiz, MÓNICA) Instructional Method: Verbal; Patient Instructed; Family/Support Person Instructed; Verbalized Understanding (Luma Ruiz, RN) Plan of Care: Plan of Care Discussed; Labor (Luma Ruiz, MÓNICA) Unit Routine: [place] to Room; Call Cordero; Bed; Visiting Policy; Waiting Areas; Phone/Cell Phone Use; Unit Personnel; Handwashing; Monitoring; Safety/Fall Risk Prevention; Diet/Nutrition Services; Bathroom Privileges (Luma Ruiz, MÓNICA) Labor/Induction: Labor Stages (Luma Ruiz RN) Pain Management: Pain Scale/Goals; Comfort Measures (Luma Ruiz RN) Related: Common Discomforts of ; Maternal Physical Changes; Maternal Emotional Changes; Nutrition; Hydration; Activity and Rest (Luma Ruiz RN) Communication: RN at Bedside; RN Reviewed Strip (Luma Ruiz RN) LaborFlag: OB Triage (QS system process) Datetime: 09/27/2016 14:12 NBP Sys/Olesya/Mean (mmHg): 96 (QS system process) : 53 (QS system process) : 68 (QS system process) Pulse: 70 (QS system process) LaborFlag: OB Triage (QS system process)
--- NOTE | 2016-09-27 16:06 | Non Stress Test Report ---
Non Stress Test Datetime Report Generated by CPN: 09/27/2016 16:05 DEMOGRAPHIC EGA NST: 37.5 INDICATION Indication for Study: Other Indication for Study (NST) Other: LABOR CHECK-CRAMPING, BACK PAIN MONITORING Monitor Explained: Monitor Explained; Test Explained; Patient Verbalized Understanding Time on Monitor: 09/27/2016 14:14 Time off Monitor: 09/27/2016 15:23 NST Duration: 69 NST INTERVENTIONS NST Interventions: PO Hydration; Reposition Patient BABY A Movement : Present Contraction Frequency : none FHR Baseline : 130 Accelerations : 15X15 Decelerations : None Variability : Moderate 6-25bpm NST Review: Meets Criteria for Reactive NST NST Review and Verified By : S VAHID NST Results: Reactive NST REPORT Report Trigger: Send Report
[2016-09-28 00:43] LABS: CHLAM PCR NOT DETECTED (NOT DETECT)
== END 2016-09-27 15:46 | disposition home or self-care (01) ==
LOC: LC 13:47
PROVIDERS: ATTEND Obstetrics & Gynecology
PROC: 4A1HXCZ Monitoring of Products of Conception, Cardiac Rate, External Approach (ICD-10-PCS; principal; 2016-09-27)
DX: O99.89 Other specified diseases and conditions complicating pregnancy, childbirth and the puerperium (principal); M54.9 Dorsalgia, unspecified; Z3A.37 37 weeks gestation of pregnancy
CPT/HCPCS: 59025; 80307; 81005; 87081; 87491; 87591

== ENCOUNTER 2016-10-14 21:01 | Outpatient (CLI) | payer MEDICAID ==
[2016-10-14 21:55] LABS: AMNISURE (ROM) NEGATIVE (NEGATIVE)
[2016-10-14 22:03] LABS: APPEARANCE,URINE SLIGHTLY-CLOUDY; BILIRUBIN,URINE NEGATIVE (NEGATIVE); GLUCOSE, URINE NEGATIVE (NEGATIVE); KETONES,URINE NEGATIVE (NEGATIVE); LEUKOCYTE ESTERASE,URINE NEGATIVE (NEGATIVE); NITRITE,URINE NEGATIVE (NEGATIVE); PROTEIN,URINE NEGATIVE (NEGATIVE); URINE SPECIFIC GRAVITY 1.006; UROBILINOGEN,URINE NEGATIVE mg/dL (<2.0)
[2016-10-14 22:17] LABS: URINE BARBITURATES SCREEN NEGATIVE; URINE METHADONE SCREEN NEGATIVE; URINE OPIATES LOW NEGATIVE; URINE PHENCYCLIDINE SCREEN NEGATIVE
--- NOTE | 2016-10-14 23:23 | Non Stress Test Report ---
Non Stress Test Datetime Report Generated by CPN: 10/14/2016 23:23 DEMOGRAPHIC EGA NST: 40.6 INDICATION Indication for Study: Ordered by Provider Indication for Study (NST) Other: LC URINE RESULTS Urine Protein, NST: Negative Urine Ketones - NST: Negative Urine Glucose - NST: Negative Urine Blood - NST: Negative MONITORING Monitor Explained: Monitor Explained; Test Explained; Patient Verbalized Understanding Time on Monitor: 10/14/2016 21:26 Time off Monitor: 10/14/2016 22:43 NST Duration: 77 NST INTERVENTIONS NST Interventions: PO Hydration; Other NST Interventions Other: popsicle Physician Notified NST: Dr. Neilsen BABY A: [id number] BABY A Movement : Present Contraction Frequency : one noted FHR Baseline : 115 Accelerations : 15X15 Decelerations : None Variability : Moderate 6-25bpm NST Review: Meets Criteria for Reactive NST NST Review and Verified By : Jasmin Licea RN NST Results: Reactive NST REPORT Report Trigger: Send Report
== END 2016-10-14 23:12 | disposition home or self-care (01) ==
LOC: LC 21:01
PROVIDERS: ATTEND Specialist
PROC: 4A1HXCZ Monitoring of Products of Conception, Cardiac Rate, External Approach (ICD-10-PCS; principal; 2016-10-14)
DX: O48.0 Post-term pregnancy (principal); Z3A.40 40 weeks gestation of pregnancy
CPT/HCPCS: 59025; 76815; 80307; 81005; 84112

== ENCOUNTER 2016-10-16 02:38 | Inpatient (IN) | payer MEDICAID ==
[2016-10-16] MEDS ORDERED: DINOPROSTONE 10 MG VAGINAL INSERT.SR PV PRN (02:54)
[2016-10-16] MEDS ORDERED: RINGERS SOLUTION,LACTATED 300 ML IV ONE (02:54)
[2016-10-16] MEDS ORDERED: RINGERS SOLUTION,LACTATED 1,000 ML IV PRN (02:54)
[2016-10-16 03:13] LABS: APPEARANCE,URINE CLEAR; BILIRUBIN,URINE NEGATIVE (NEGATIVE); GLUCOSE, URINE NEGATIVE (NEGATIVE); KETONES,URINE NEGATIVE (NEGATIVE); LEUKOCYTE ESTERASE,URINE NEGATIVE (NEGATIVE); NITRITE,URINE NEGATIVE (NEGATIVE); PROTEIN,URINE NEGATIVE (NEGATIVE); URINE SPECIFIC GRAVITY 1.003; UROBILINOGEN,URINE NEGATIVE mg/dL (<2.0)
[2016-10-16 03:30] LABS: URINE BARBITURATES SCREEN NEGATIVE; URINE METHADONE SCREEN NEGATIVE; URINE OPIATES LOW NEGATIVE; URINE PHENCYCLIDINE SCREEN NEGATIVE
[2016-10-16 03:31] LABS: ABSOLUTE EOSINOPHILS # (AUTO) 0.1 10^3/uL (0.0-0.6); ABSOLUTE LYMPHOCYTES (AUTO) 2.5 10^3/uL (0.5-4.7); ABSOLUTE MONOCYTES (AUTO) 0.9 10^3/uL (0.1-1.4); ABSOLUTE NEUT (AUTO) 8.2 10^3/uL (1.7-8.2); BASOPHILS % (AUTO) 0.2 % (0-2); EOSINOPHILS % (AUTO) 0.8 % (0-6); HEMATOCRIT 28.3 % (36.0-47.0); HEMOGLOBIN 9.6 g/dL (12.0-15.5); HGB HCT DIFFERENCE 0.5; LYMPHOCYTES % (AUTO) 21.5 % (13-45); MEAN CORPUSCULAR HEMOGLOBIN 28.7 pg (27.0-33.4); MEAN CORPUSCULAR VOLUME 84 fl (80-97); RED BLOOD COUNT 3.35 10^6/uL (3.72-5.28); RED CELL DISTRIBUTION WIDTH 13.5 % (11.5-14.0); SEGMENTED NEUTROPHILS % (AUTO) 69.5 % (42-78); WHITE BLOOD COUNT 11.8 10^3/uL (4.0-10.5)
[2016-10-16] MEDS ORDERED: OXYTOCIN/NORMAL SALINE 0 UNIT/0 ML RTUINJ ONE (07:15)
--- NOTE | 2016-10-16 08:01 | L&D Flow Sheet ---
LD Flowsheet Datetime Report Generated by CPN: 10/16/2016 08:00 Datetime: 10/16/2016 07:44 NBP Sys/Olesya/Mean (mmHg): 95 (QS system process) : 51 (QS system process) : 70 (QS system process) Pulse: 60 (QS system process) LaborFlag: Antepartum (QS system process) Datetime: 10/16/2016 07:43 Pitocin (milliunit): Pitocin Increased to (milliunits) @ 4 (Maritza Zaid, RN) Datetime: 10/16/2016 07:29 Level of Consciousness: Fully Conscious (Maritza Zaid, RN) Headache: Denies (Maritza Zaid, RN) Breath Sounds, Left: Clear and Equal (Maritza Zaid, RN) Breath Sounds, Right: Clear and Equal (Maritza Zaid, RN) Nausea/Vomiting: Denies (Maritza Zaid, RN) RUQ Epigastric Pain: Denies (Maritza Zaid, RN) Datetime: 10/16/2016 07:25 Pitocin (milliunit): Pitocin Started (milliunits) @ 2 (Kathy Broman, RN) Datetime: 10/16/2016 07:13 NBP Sys/Olesya/Mean (mmHg): 101 (QS system process) : 55 (QS system process) : 73 (QS system process) Pulse: 51 (QS system process) LaborFlag: Antepartum (QS system process) Datetime: 10/16/2016 07:00 Stage of : Antepartum (Priscilla Delgado, RN) Monitor Mode: External (Priscilla Delgado, RN) Frequency (min): irregular (Priscilla Delgado, RN) Quality: Mild (Priscilla Delgado, RN) Duration (sec): 60-80 (Priscilla Delgado, RN) Pattern: Normal: <= 5 Contractions in 10 Minutes (Priscilla Delgado, RN) Resting Tone (Palpate): Relaxed (Priscilla Delgado, RN) Monitor Mode: External US (Priscilla Delgado, RN) FHR Baseline Rate : 120 (Priscilla Delgado, RN) Variability: Moderate 6-25 bpm (Priscilla Delgado, RN) Accelerations: 15X15 (Priscilla Delgado, RN) Decelerations: None (Priscilla Delgado, RN) Communication: RN Reviewed Strip (Priscilla Delgado, RN) Datetime: 10/16/2016 06:46 NBP Sys/Olesya/Mean (mmHg): 96 (QS system process) : 50 (QS system process) : 70 (QS system process) Pulse: 64 (QS system process) LaborFlag: Antepartum (QS system process) Datetime: 10/16/2016 06:30 Stage of : Antepartum (Priscilla Delgado, RN) Respirations: 18 (Priscilla Delgado, RN) Monitor Mode: External; Palpation (Priscilla Delgado, RN) Frequency (min): irregular (Priscilla Delgado, RN) Quality: Mild (Priscilla Delgado, RN) Duration (sec): 70-120 (Priscilla Delgado, RN) Pattern: Normal: <= 5 Contractions in 10 Minutes (Priscilla Delgado, RN) Resting Tone (Palpate): Relaxed (Priscilla Delgado, RN) Monitor Mode: External US (Priscilla Delgado, RN) FHR Baseline Rate : 120 (Priscilla Delgado, RN) Variability: Moderate 6-25 bpm (Priscilla Delgado, RN) Accelerations: 15X15 (Priscilla Delgado, RN) Decelerations: None (Priscilla Delgado, RN) Pain Scale: 0 (Priscilla Delgado, RN) Pain Presence: None/Denies (Priscilla Delgado, RN) Pain Type: N/A (Priscilla Delgado, RN) Communication: RN at Bedside; RN Reviewed Strip (Priscilla Delgado, RN) LaborFlag: Antepartum (QS system process) Datetime: 10/16/2016 06:24 I/O Interventions: Up to BR (Priscilla Delgado, RN) Datetime: 10/16/2016 06:13 NBP Sys/Olesya/Mean (mmHg): 91 (QS system process) : 51 (QS system process) : 67 (QS system process) Pulse: 57 (QS system process) LaborFlag: Antepartum (QS system process) Datetime: 10/16/2016 06:00 Stage of : Antepartum (Priscilla Delgado, RN) Monitor Mode: External (Priscilla Delgado, RN) Frequency (min): irregular (Priscilla Delgado, RN) Quality: Mild (Priscilla Delgado, RN) Duration (sec): 120-130 (Priscilla Delgado, RN) Pattern: Normal: <= 5 Contractions in 10 Minutes (Priscilla Delgado, RN) Resting Tone (Palpate): Relaxed (Priscilla Delgado, RN) Monitor Mode: External US (Priscilla Delgado, RN) FHR Baseline Rate : 120 (Priscilla Delgado, RN) Variability: Moderate 6-25 bpm (Priscilla Delgado, RN) Accelerations: 15X15 (Priscilla Delgado, RN) Decelerations: Variable (Priscilla Delgado, RN) Communication: RN at Bedside; RN Reviewed Strip (Priscilla Delgado, RN) Datetime: 10/16/2016 05:45 NBP Sys/Olesya/Mean (mmHg): 102 (QS system process) : 50 (QS system process) : 72 (QS system process) Pulse: 50 (QS system process) LaborFlag: Antepartum (QS system process) Datetime: 10/16/2016 05:30 Monitor Mode: External (Priscilla Delgado, RN) Frequency (min): x1 (Priscilla Delgado, RN) Quality: Mild (Priscilla Delgado, RN) Duration (sec): 60 (Priscilla Delgado, RN) Resting Tone (Palpate): Relaxed (Priscilla Delgado, RN) Monitor Mode: External US (Priscilla Delgado, RN) FHR Baseline Rate : 115 (Priscilla Delgado, RN) Variability: Moderate 6-25 bpm (Priscilla Delgado, RN) Accelerations: 10X10 (Priscilla Delgado, RN) Decelerations: Variable (Priscilla Delgado, RN) Datetime: 10/16/2016 05:24 I/O Interventions: Up to BR (Priscilla Delgado, RN) Datetime: 10/16/2016 05:13 NBP Sys/Olesya/Mean (mmHg): 116 (QS system process) : 70 (QS system process) : 87 (QS system process) Pulse: 56 (QS system process) LaborFlag: Antepartum (QS system process) Datetime: 10/16/2016 05:03 IV/Blood Work: IV Started; IV Bolus Started (Priscilla Delgado, RN) Patient Care Comments: 18 gauge placed in L forearm (Priscilla Delgado, RN) Datetime: 10/16/2016 05:00 Monitor Mode: External (Priscilla Delgado, RN) Frequency (min): x2 (Priscilla Delgado, RN) Quality: Mild (Priscilla Delgado, RN) Duration (sec): 60-80 (Priscilla Delgado, RN) Resting Tone (Palpate): Relaxed (Priscilla Delgado, RN) Monitor Mode: External US (Priscilla Delgado, RN) FHR Baseline Rate : 115 (Priscilla Delgado, RN) Variability: Moderate 6-25 bpm (Priscilla Delgado, RN) Accelerations: 15X15 (Priscilla Delgado, RN) Decelerations: None (Priscilla Delgado, RN) Datetime: 10/16/2016 04:52 Dilatation (cm): 2.0 (Priscilla Delgado, RN) Effacement (%): 50 (Priscilla Delgado, RN) Station: -2 (Priscilla Delgado, RN) Exam by: Dr Pérez (Priscilla Delgado, RN) Vaginal Bleeding: None (Priscilla Delgado, RN) Cervix, Consistency: Moderate (Priscilla Delgado, RN) Cervix, Position: Posterior (Priscilla Delgado, RN) Communication: Provider at Bedside (Priscilla Delgado, RN) Communication Comments: Dr Pérez at bedside for patient assessment (Priscilla Delgado, MÓNICA) Datetime: 10/16/2016 04:43 NBP Sys/Olesya/Mean (mmHg): 110 (QS system process) : 72 (QS system process) : 86 (QS system process) Pulse: 73 (QS system process) LaborFlag: Antepartum (QS system process) Datetime: 10/16/2016 04:30 Monitor Mode: External (Priscilla Delgado, RN) Frequency (min): x1 (Priscilla Delgado, RN) Quality: Mild (Priscilla Delgado, RN) Duration (sec): 70 (Priscilla Delgado, RN) Resting Tone (Palpate): Relaxed (Priscilla Delgado, RN) Monitor Mode: External US (Priscilla Delgado, RN) FHR Baseline Rate : 115 (Priscilla Delgado, RN) Variability: Moderate 6-25 bpm (Priscilla Delgado, RN) Accelerations: 10X10 (Priscilla Delgado, RN) Decelerations: None (Priscilla Delgado, RN) Datetime: 10/16/2016 04:21 I/O Interventions: Up to BR (Priscilla Delgado, RN) Datetime: 10/16/2016 04:13 NBP Sys/Olesya/Mean (mmHg): 100 (QS system process) : 62 (QS system process) : 77 (QS system process) Pulse: 60 (QS system process) LaborFlag: Antepartum (QS system process) Datetime: 10/16/2016 04:00 Monitor Mode: External (Priscilla Delgado, RN) Frequency (min): x1 (Priscilla Delgado, RN) Quality: Mild (Priscilla Delgado, RN) Duration (sec): 60 (Priscilla Delgado, RN) Resting Tone (Palpate): Relaxed (Priscilla Delgado, RN) Monitor Mode: External US (Priscilla Delgado, RN) FHR Baseline Rate : 125 (Priscilla Delgado, RN) Variability: Moderate 6-25 bpm (Priscilla Delgado, RN) Accelerations: 15X15 (Priscilla Delgado, RN) Decelerations: None (Priscilla Delgado, RN) Datetime: 10/16/2016 03:44 NBP Sys/Olesya/Mean (mmHg): 102 (QS system process) : 66 (QS system process) : 77 (QS system process) Pulse: 93 (QS system process) LaborFlag: Antepartum (QS system process) Datetime: 10/16/2016 03:33 I/O Interventions: Up to BR (Priscilla Delgado, RN) Datetime: 10/16/2016 03:30 Stage of : Antepartum (Priscilla Delgado, RN) Monitor Mode: External; Palpation (Priscilla Delgado, RN) Frequency (min): x2 (Priscilla Delgado, RN) Quality: Mild (Priscilla Delgado, RN) Duration (sec): 70-80 (Priscilla Delgado, RN) Pattern: Normal: <= 5 Contractions in 10 Minutes (Priscilla Delgado, RN) Resting Tone (Palpate): Relaxed (Priscilla Delgado, RN) Monitor Mode: External US (Priscilla Delgado, RN) FHR Baseline Rate : 120 (Priscilla Delgado, RN) Variability: Moderate 6-25 bpm (Priscilla Delgado, RN) Accelerations: 15X15 (Priscilla Delgado, RN) Decelerations: None (Priscilla Delgado, RN) Communication: RN at Bedside; RN Reviewed Strip (Priscilla Delgado, RN) Datetime: 10/16/2016 03:25 Procedures: Consents Signed (Priscilla Delgado, RN) Datetime: 10/16/2016 03:13 NBP Sys/Olesya/Mean (mmHg): 116 (QS system process) : 70 (QS system process) : 87 (QS system process) Pulse: 82 (QS system process) LaborFlag: OB Triage (QS system process) Datetime: 10/16/2016 03:11 Pain Scale: 0 (Priscilla Delgado, MÓNICA) Pain Presence: None/Denies (Priscilla Delgado, RN) Pain Type: N/A (Priscilla Delgado, RN) Vaginal Bleeding: None (Priscilla Delgado, RN) Level of Consciousness: Fully Conscious (Priscilla Delgado, RN) DTR's/Clonus: DTRs 2+; No Clonus (Priscilla Delgado, RN) Headache: Denies (Priscilla Delgado, RN) Breath Sounds, Left: Clear and Equal (Priscilla Delgado RN) Breath Sounds, Right: Clear and Equal (Priscilla Delgaod, RN) Nausea/Vomiting: Present (Annotations: nausea) (Priscilla Delgado, RN) RUQ Epigastric Pain: Denies (Priscilla Delgado, RN) LaborFlag: OB Triage (QS system process)
--- NOTE | 2016-10-16 09:03 | L&D Progress Notes ---
PROGRESS NOTES Datetime Report Generated by CPN: 10/16/2016 09:03 PROGRESS NOTE Impression: Reassuring Heart Rate Procedures: Artificial ROM; Sterile Vag Exam Plan: Continue Present Management; Induction Informed Consent Obtained: Vaginal Delivery; Induction of Labor; Risks, Benefits and Alternatives Discussed Vital Signs : Reviewed; Within Normal Limits Comment: irrregular uc's, VE = 3-70-vtx, 0, AROM clear fluid, partner at , does not want epidural, wanting to know what she can take for pain if needed. Variables after arom Plan: Continue Pitocin VAGINAL EXAM Dilatation: 2 Effacement: 50 Station: -2 FETUS A FHR - Baseline: 120 Variability: Moderate 6-25bpm Accelerations: 15X15 Decelerations: Variable FHR Category: Category I Presentation: Vertex SIGNATURE SIGNATURE: [id number] SIGNATURE: [id number] SIGNATURE: [id number] SIGNATURE: [id number] SIGNATURE: [id number] Assignment: Malka Santana MD Signature: with User ID: [email or web address] : with User ID: [email or web address]
--- NOTE | 2016-10-16 11:20 | L&D Progress Notes ---
PROGRESS NOTES Datetime Report Generated by CPN: 10/16/2016 11:20 PROGRESS NOTE Impression: Reassuring Heart Rate Plan: Continue Present Management; Induction Vital Signs : Reviewed; Within Normal Limits Comment: Cat 1 strip, regular UC's, tolerating labor at this point FETUS A FHR - Baseline: 125 Variability: Moderate 6-25bpm Accelerations: 15X15 Decelerations: None FETUS C SIGNATURE: [id number] Assignment: Malka Santana MD Signature: with User ID: Emilee : with User ID: [email or web address]
[2016-10-16] MEDS ORDERED: OXYTOCIN/NORMAL SALINE 20 UNIT/1,000 ML RTUINJ ONE (12:19)
[2016-10-16] MEDS ORDERED: MISOPROSTOL 0.2 MG TABLET ONE (12:19)
[2016-10-16] MEDS ORDERED: LIDOCAINE 1% INJ-PF (10 MG/ML) 30 ML SDV ONE (12:19)
[2016-10-16] MEDS ORDERED: PROMETHAZINE HCL INJ 25 MG/1 ML VIAL IV PRN (12:50)
[2016-10-16] MEDS ORDERED: OXYTOCIN/NORMAL SALINE 1,000 ML IV PRN ×2 (12:50→15:00)
[2016-10-16] MEDS ORDERED: NA PHOS,M-B/NA PHOS,DI-BA (ADULT) 133 ML ENEMA PR PRN (12:50)
[2016-10-16] MEDS ORDERED: PROMETHAZINE HCL 25 MG SUPP.RECT PR PRN (12:50)
[2016-10-16] MEDS ORDERED: DIPHENHYDRAMINE HCL 25 MG CAPSULE PO PRN (12:50)
[2016-10-16] MEDS ORDERED: DIPH/PERTUSS(ACELL)/TETANUS VAC/PF 0.5 ML SYR (>=10YO) IM PRN (12:50)
[2016-10-16] MEDS ORDERED: BENZOCAINE/MENTHOL AEROSOL SPRAY 56 ML TOP PRN (12:50)
[2016-10-16] MEDS ORDERED: GLYCERIN/WITCH HAZEL LEAF 1 EACH MED..PAD TP PRN (12:50)
[2016-10-16] MEDS ORDERED: MAGNESIUM HYDROXIDE SUSP 30 ML UDCUP PO PRN (12:50)
[2016-10-16] MEDS ORDERED: PROMETHAZINE HCL 25 MG TABLET PO PRN (12:50)
[2016-10-16] MEDS ORDERED: MEASLES,MUMPS&RUBELLA VACC/PF 0.5 ML VIAL SUBCUT PRN (12:50)
[2016-10-16] MEDS ORDERED: PSEUDOEPHEDRINE HCL 30 MG TABLET PO PRN (12:50)
[2016-10-16] MEDS ORDERED: DIBUCAINE 1% OINTMENT 28 GM TP PRN (12:50)
[2016-10-16] MEDS ORDERED: MISOPROSTOL 0.2 MG TABLET PR ONE (12:50)
[2016-10-16] MEDS ORDERED: ACETAMINOPHEN 650 MG SUPP.RECT PR PRN (12:50)
[2016-10-16 12:55] LABS: ARTERIAL BLOOD BASE EXCESS -8.1 mmol/L; ARTERIAL BLOOD O2 SATURATION 16.9 % (94-98)
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
[2016-10-16] MEDS: IBUPROFEN 800 MG TABLET PO SCH ×2 (17:11→21:21)
[2016-10-16] MEDS: DOCUSATE SODIUM 100 MG CAPSULE PO SCH (17:16)
[2016-10-16] MEDS: FERROUS SULFATE 325 MG TABLET PO SCH (17:16)
--- NOTE | 2016-10-16 19:01 | L&D Flow Sheet ---
LD Flowsheet Datetime Report Generated by CPN: 10/16/2016 19:00 Datetime: 10/16/2016 14:50 Respirations: 17 (Maritza Mar RN) Temperature (F): 98.3 (Maritza Mar RN) Temperature (C): 36.8 (QS system process) Pain Scale: 0 (Maritza Mar RN) Pain Presence: None/Denies (Maritza Mar RN) Pain Type: N/A (Maritza Mar RN) LaborFlag: Antepartum (QS system process) Datetime: 10/16/2016 14:20 Pain Scale: 0 (Kathy Broman, RN) Pain Presence: None/Denies (Kathy Broman, RN) Pain Type: N/A (Kathy Broman, RN) Pain Assessment Comments: (Kathy Broman, RN) LaborFlag: Antepartum (QS system process) Datetime: 10/16/2016 14:05 Pain Scale: 0 (Kathy Broman, RN) Pain Presence: None/Denies (Kathy Broman, RN) Pain Type: N/A (Kathy Broman, RN) LaborFlag: Antepartum (QS system process) Datetime: 10/16/2016 13:50 Respirations: 17 (Maritza Zaid, RN) Pain Scale: 0 (Maritza Zaid, RN) Pain Presence: None/Denies (Maritza Zaid, RN) Pain Type: N/A (Maritza Zaid, RN) LaborFlag: Antepartum (QS system process) Datetime: 10/16/2016 13:41 NBP Sys/Olesya/Mean (mmHg): 122 (QS system process) : 58 (QS system process) : 80 (QS system process) Pulse: 52 (QS system process) LaborFlag: Antepartum (QS system process) Datetime: 10/16/2016 13:35 Respirations: 17 (Maritza Zaid, RN) Pain Scale: 0 (Maritza Zaid, RN) Pain Presence: None/Denies (Maritza Zaid, RN) Pain Type: N/A (Maritza Zaid, RN) LaborFlag: Antepartum (QS system process) Datetime: 10/16/2016 13:26 NBP Sys/Olesya/Mean (mmHg): 119 (QS system process) : 59 (QS system process) : 85 (QS system process) Pulse: 49 (QS system process) LaborFlag: Antepartum (QS system process) Datetime: 10/16/2016 13:20 Respirations: 17 (Maritza Zaid, RN) Pain Scale: 0 (Maritza Zaid, RN) Pain Presence: None/Denies (Maritza Zaid, RN) Pain Type: N/A (Maritza Zaid, RN) LaborFlag: Antepartum (QS system process) Datetime: 10/16/2016 13:11 NBP Sys/Olesya/Mean (mmHg): 121 (QS system process) : 64 (QS system process) : 87 (QS system process) Pulse: 68 (QS system process) LaborFlag: Antepartum (QS system process) Datetime: 10/16/2016 13:05 Respirations: 17 (Maritza Zaid, RN) Temperature (F): 98.0 (Maritza Zaid, RN) Temperature (C): 36.7 (QS system process) Pain Scale: 0 (Maritza Zaid, RN) Pain Presence: None/Denies (Maritza Zaid, RN) Pain Type: N/A (Maritza Zaid, RN) Pain Relief Measures: Comfort Measures (Maritza Zaid, RN) LaborFlag: Antepartum (QS system process) Datetime: 10/16/2016 12:50 Respirations: 17 (Maritza Zaid, RN) Pain Scale: 0 (Maritza Zaid, RN) Pain Presence: None/Denies (Maritza Zaid, RN) Pain Type: N/A (Maritza Zaid, RN) Pain Relief Measures: Comfort Measures (Maritza Zaid, RN) LaborFlag: Antepartum (QS system process) Datetime: 10/16/2016 12:35 Respirations: 17 (Maritza Zaid, RN) Pain Scale: 0 (Maritza Zaid, RN) Pain Presence: None/Denies (Maritza Zaid, RN) Pain Type: N/A (Maritza Zaid, RN) Pain Relief Measures: Comfort Measures (Maritza Zaid, RN) LaborFlag: Antepartum (QS system process) Datetime: 10/16/2016 12:30 Stage 2 Comments: delivery liveborn female placed on maternal abdomen cord clamped (Jazmin Camp, RNC) Datetime: 10/16/2016 12:24 Comments: 10L oxygen applied via non re breather mask (Maritza Zaid, RN) Datetime: 10/16/2016 12:22 Pushing Position: Pushing with Contractions (Jazmin Camp, RNC) Stage 2 Comments: RN and Dye Lab Technician to remain at bedside throughout second stage continuously assessing fhr while pushing with cont (Jazmin Camp, RNC) Datetime: 10/16/2016 12:21 Dilatation (cm): 10.0 (Jazmin Camp, RNC) Effacement (%): 100 (Jazmin Camp, RNC) Station: 2 (Jazmni Camp, RNC) Exam by: Marian Narvaez (Jazmin Camp, RNC) Instructional Method: Demo; Verbal; Patient Instructed; Family/Support Person Instructed; Verbalized Understanding (Jazmin Camp, RNC) Labor/Induction: Pushing Methods (Jazmin Camp, RNC) Teaching Comments: intense coaching required, pt yelling and with shallow rapid breaths. Relaxation and diversion techniques attempted (Jazmin Camp, RNC) Pushing: Urge to Push; Involuntary Pushing (Jazmin Camp, RNC) Datetime: 10/16/2016 12:17 Monitor Interventions for FHR: FSE Applied (Jazmin Scobey, RNC) Actions for Decelerations: Pitocin Off; Sterile Vaginal Exam; [facility] Not[facility] Actions for Decelerations: Side to Side (Jazmin Scobey, RNC) Comments: Marian Narvaez CNM at bedside ([facility], C) Dilatation (cm): 9.0 (Jazmin Camp, RNC) Effacement (%): 100 (Jazmin Camp, RNC) Station: 2 ([facility], C) Exam by: Brice Fonseca (Jazmin Scobey, C) Vaginal Bleeding: Normal Show (Jazmin Scobey, RNC) Cervix, Consistency: Soft (Jazmin Scobey, RNC) Cervix, Position: Anterior ([facility], C) Datetime: 10/16/2016 12:15 Monitor Mode: External; Palpation (Maritza Zaid, RN) Frequency (min): 2-3 (Maritza Zaid, RN) Quality: Moderate to Strong (Maritza Zaid, RN) Duration (sec): 60-80 (Maritza Zaid, RN) Resting Tone (Palpate): Relaxed (Maritza Zaid, RN) Monitor Mode: External US (Maritza Mar, RN) FHR Baseline Rate : 135 (Maritza Zaid, RN) Variability: Moderate 6-25 bpm (Maritza Zaid, RN) Accelerations: None (Maritza Zaid, RN) Decelerations: None (Maritza Zaid, RN) Datetime: 10/16/2016 12:02 Patient Position/Activity: Left Lateral; Peanut Ball (Maritza Zaid, RN) Datetime: 10/16/2016 12:00 Monitor Mode: External (Maritza Zaid, RN) Frequency (min): 2-3 (Maritza Zaid, RN) Quality: Moderate (Maritza Zaid, RN) Duration (sec): 70-90 (Maritza Zaid, RN) Resting Tone (Palpate): Relaxed (Maritza Zaid, RN) Monitor Mode: External US (Maritza Zaid, RN) FHR Baseline Rate : 130 (Maritza Zaid, RN) Variability: Moderate 6-25 bpm (Maritza Zaid, RN) Accelerations: None (Maritza Zaid, RN) Decelerations: None (Maritza Zaid, RN) Pitocin (milliunit): Pitocin Remains (milliunits) @ 10 (Maritza Zaid, RN) Datetime: 10/16/2016 11:58 Dilatation (cm): 6.0 (Maritza Zaid, RN) Effacement (%): 100 (Maritza Zaid, RN) Station: 0 (Maritza Zaid, RN) Exam by: JJanel Narvaez CNM (Maritza Zaid, RN) Datetime: 10/16/2016 11:57 Communication Comments: J. Narvaez CNM at bedside (Maritza Zaid, RN) Datetime: 10/16/2016 11:55 Communication Comments: pt stating she feels a lot of pain and pressure in her bottom (Maritza Zaid, RN) Datetime: 10/16/2016 11:45 Monitor Mode: External (Maritza Zaid, RN) Frequency (min): 2 (Maritza Zaid, RN) Quality: Moderate (Maritza Zaid, RN) Duration (sec): 50-80 (Maritza Zaid, RN) Resting Tone (Palpate): Relaxed (Maritza Zaid, RN) Monitor Mode: External US (Maritza Zaid, RN) FHR Baseline Rate : 125 (Maritza Zaid, RN) Variability: Moderate 6-25 bpm (Maritza Zaid, RN) Accelerations: None (Maritza Zaid, RN) Decelerations: None (Maritza Zaid, RN) Pitocin (milliunit): Pitocin Remains (milliunits) @ 10 (Maritza Zaid, RN) Datetime: 10/16/2016 11:36 Pain Scale: 5 (Maritza Zaid, RN) Pain Presence: Intermittent (Maritza Zaid, RN) Pain Type: Contraction (Maritza Mar RN) Pain Location: Abdomen (Maritza Mar RN) Pain Relief Measures: Comfort Measures (Maritza Mar RN) Pain Assessment Comments: declines need for pain medication at this time (Maritza Mar RN) Comfort Measures: Breathing/Relaxation; Back Rub Given; Family Support (Maritza Mar RN) LaborFlag: Antepartum (QS system process) Datetime: 10/16/2016 11:35 Patient Care Comments: pt assisted into rocking chair (Maritza Mar RN) Datetime: 10/16/2016 11:32 Patient Care Comments: pt standing up next to the bed (Maritza Mar RN) Communication: RN at Bedside (Maritza Mar RN) Datetime: 10/16/2016 11:30 Monitor Mode: External (Maritza Zaid, RN) Frequency (min): 2-3 (Maritza Zaid, RN) Quality: Moderate (Maritza Zaid, RN) Duration (sec): 50-80 (Maritza Zaid, RN) Resting Tone (Palpate): Relaxed (Maritza Zaid, RN) Monitor Mode: External US (Maritza Zaid, RN) FHR Baseline Rate : 120 (Maritza Zaid, RN) Variability: Moderate 6-25 bpm (Maritza Zaid, RN) Accelerations: 10X10 (Maritza Zaid, RN) Decelerations: None (Maritza Zaid, RN) Pitocin (milliunit): Pitocin Remains (milliunits) @ 10 (Maritza Zaid, RN) Datetime: 10/16/2016 11:28 I/O Interventions: Up to BR (Maritza Zaid, RN) Datetime: 10/16/2016 11:15 NBP Sys/Olesya/Mean (mmHg): 126 (QS system process) : 82 (QS system process) : 100 (QS system process) Pulse: 68 (QS system process) Monitor Mode: External; Palpation (Maritza Zaid, RN) Frequency (min): 2-3 (Maritza Zaid, RN) Quality: Moderate (Maritza Zaid, RN) Duration (sec): 60-90 (Maritza Zaid, RN) Resting Tone (Palpate): Relaxed (Maritza Zaid, RN) Monitor Mode: External US (Maritza Zaid, RN) FHR Baseline Rate : 125 (Maritza Zaid, RN) Variability: Moderate 6-25 bpm (Maritza Zaid, RN) Accelerations: 15X15 (Maritza Zaid, RN) Decelerations: None (Maritza Zaid, RN) Pitocin (milliunit): Pitocin Remains (milliunits) @ (Annotations: 10) (Maritza Zaid, RN) LaborFlag: Antepartum (QS system process) Datetime: 10/16/2016 11:00 Monitor Mode: External (Maritza Zaid, RN) Frequency (min): 2 (Maritza Zaid, RN) Quality: Moderate (Maritza Zaid, RN) Duration (sec): 60-80 (Maritza Zaid, RN) Resting Tone (Palpate): Relaxed (Maritza Zaid, RN) Monitor Mode: External US (Maritza Zaid, RN) FHR Baseline Rate : 120 (Maritza Zaid, RN) Variability: Moderate 6-25 bpm (Maritza Zaid, RN) Accelerations: None (Maritza Zaid, RN) Decelerations: None (Maritza Zaid, RN) Pitocin (milliunit): Pitocin Remains (milliunits) @ 10 (Maritza Zaid, RN) Datetime: 10/16/2016 10:45 Monitor Mode: External; Palpation (Maritza Zaid, RN) Frequency (min): 2-3 (Maritza Zaid, RN) Quality: Moderate (Maritza Zaid, RN) Duration (sec): 60-90 (Maritza Zaid, RN) Resting Tone (Palpate): Relaxed (Maritza Zaid, RN) Monitor Mode: External US (Maritza Zaid, RN) FHR Baseline Rate : 120 (Maritza Zaid, RN) Variability: Moderate 6-25 bpm (Maritza Zaid, RN) Accelerations: None (Maritza Zaid, RN) Decelerations: None (Maritza Zaid, RN) Datetime: 10/16/2016 10:44 NBP Sys/Olesya/Mean (mmHg): 131 (QS system process) : 68 (QS system process) : 96 (QS system process) Pulse: 75 (QS system process) LaborFlag: Antepartum (QS system process) Datetime: 10/16/2016 10:30 Monitor Mode: External; Palpation (Maritza Zaid, RN) Frequency (min): 2-3 (Maritza Zaid, RN) Quality: Moderate (Maritza Zaid, RN) Duration (sec): 50-70 (Maritza Zaid, RN) Resting Tone (Palpate): Relaxed (Maritza Zaid, RN) Monitor Mode: External US (Maritza Zaid, RN) FHR Baseline Rate : 120 (Maritza Zaid, RN) Variability: Moderate 6-25 bpm (Maritza Zaid, RN) Accelerations: None (Maritza Zaid, RN) Decelerations: None (Maritza Zaid, RN) Pitocin (milliunit): Pitocin Remains (milliunits) @ 10 (Maritza Zaid, RN) Datetime: 10/16/2016 10:15 Monitor Mode: External; Palpation (Maritza Zaid, RN) Frequency (min): 2-3 (Maritza Zaid, RN) Quality: Moderate (Maritza Zaid, RN) Duration (sec): 60-90 (Maritza Zaid, RN) Resting Tone (Palpate): Relaxed (Maritza Zaid, RN) Monitor Mode: External US (Maritza Zaid, RN) FHR Baseline Rate : 120 (Maritza Zaid, RN) Variability: Moderate 6-25 bpm (Maritza Zaid, RN) Accelerations: None (Maritza Zaid, RN) Decelerations: None (Maritza Zaid, RN) Pitocin (milliunit): Pitocin Increased to (milliunits) @ 10 (Maritza Zaid, RN) Datetime: 10/16/2016 10:14 NBP Sys/Olesya/Mean (mmHg): 104 (QS system process) : 65 (QS system process) : 80 (QS system process) Pulse: 55 (QS system process) LaborFlag: Antepartum (QS system process) Datetime: 10/16/2016 10:00 Monitor Mode: External (Maritza Zaid, RN) Frequency (min): 2-3 (Maritza Zaid, RN) Quality: Moderate (Maritza Zaid, RN) Duration (sec): 60-80 (Maritza Zaid, RN) Resting Tone (Palpate): Relaxed (Maritza Zaid, RN) Monitor Mode: External US (Maritza Zaid, RN) FHR Baseline Rate : 120 (Maritza Zaid, RN) Variability: Moderate 6-25 bpm (Maritza Zaid, RN) Accelerations: 10X10 (Maritza Zaid, RN) Decelerations: None (Maritza Zaid, RN) Pitocin (milliunit): Pitocin Remains (milliunits) @ 8 (Maritza Zaid, RN) Pitocin (milliunit): Pitocin Remains (milliunits) @ (Annotations: 8) (Maritza Zaid, RN) Datetime: 10/16/2016 09:54 Respirations: 17 (Maritza Zaid, RN) Temperature (F): 98.0 (Maritza Zaid, RN) Temperature (C): 36.7 (QS system process) Pain Scale: 3 (Maritza Zaid, RN) Pain Relief Measures: Comfort Measures (Maritza Zaid, RN) Pain Assessment Comments: declines pain medication at this time (Maritza Zaid, RN) Comfort Measures: Breathing/Relaxation (Maritza Zaid, RN) LaborFlag: Antepartum (QS system process) Datetime: 10/16/2016 09:45 Monitor Mode: External (Maritza Zaid, RN) Frequency (min): 2-3 (Maritza Zaid, RN) Quality: Moderate (Maritza Zaid, RN) Duration (sec): 60-80 (Maritza Zaid, RN) Resting Tone (Palpate): Relaxed (Maritza Zaid, RN) Monitor Mode: External US (Maritza Zaid, RN) FHR Baseline Rate : 120 (Maritza Zaid, RN) Variability: Moderate 6-25 bpm (Maritza Zaid, RN) Accelerations: 10X10 (Maritza Zaid, RN) Decelerations: None (Maritza Zaid, RN) Pitocin (milliunit): Pitocin Remains (milliunits) @ (Annotations: 8) (Maritza Zaid, RN) Datetime: 10/16/2016 09:43 NBP Sys/Olesya/Mean (mmHg): 111 (QS system process) : 70 (QS system process) : 86 (QS system process) Pulse: 54 (QS system process) LaborFlag: Antepartum (QS system process) Datetime: 10/16/2016 09:30 Monitor Mode: External; Palpation (Maritza Zaid, RN) Frequency (min): 2-3 (Maritza Zaid, RN) Quality: Moderate (Maritza Zaid, RN) Duration (sec): 50-80 (Maritza Zaid, RN) Resting Tone (Palpate): Relaxed (Maritza Zaid, RN) Monitor Mode: External US (Maritza Zaid, RN) FHR Baseline Rate : 125 (Maritza Zaid, RN) Variability: Moderate 6-25 bpm (Maritza Zaid, RN) Accelerations: None (Maritza Zaid, RN) Decelerations: None (Maritza Zaid, RN) Pitocin (milliunit): Pitocin Remains (milliunits) @ (Annotations: 8) (Maritza Zaid, RN) Datetime: 10/16/2016 09:15 NBP Sys/Olesya/Mean (mmHg): 113 (QS system process) : 64 (QS system process) : 83 (QS system process) Pulse: 50 (QS system process) Monitor Mode: External (Maritza Zaid, RN) Frequency (min): 2-3 (Maritza Zaid, RN) Quality: Moderate (Maritza Zaid, RN) Duration (sec): 60-80 (Maritza Zaid, RN) Resting Tone (Palpate): Relaxed (Maritza Zaid, RN) Monitor Mode: External US (Maritza Zaid, RN) FHR Baseline Rate : 120 (Maritza Zaid, RN) Variability: Moderate 6-25 bpm (Maritza Zaid, RN) Accelerations: None (Maritza Zaid, RN) Decelerations: None (Maritza Zaid, RN) Pitocin (milliunit): Pitocin Remains (milliunits) @ (Annotations: 8) (Maritza Zaid, RN) LaborFlag: Antepartum (QS system process) Datetime: 10/16/2016 09:00 Monitor Mode: External; Palpation (Maritza Zaid, RN) Frequency (min): 1-3 (Maritza Zaid, RN) Quality: Mild/Moderate (Maritza Zaid, RN) Duration (sec): 60-80 (Maritza Zaid, RN) Resting Tone (Palpate): Relaxed (Maritza Zaid, RN) Monitor Mode: External US (Maritza Zaid, RN) FHR Baseline Rate : 125 (Maritza Zaid, RN) Variability: Moderate 6-25 bpm (Maritza Zaid, RN) Accelerations: Prolonged (Maritza Zaid, RN) Decelerations: Variable (Maritza Zaid, RN) Pitocin (milliunit): Pitocin Remains (milliunits) @ (Annotations: 8) (Maritza Zaid, RN) Datetime: 10/16/2016 08:53 Dilatation (cm): 2.5 (Maritza Mar, MÓNICA) Effacement (%): 70 (Maritza Mar RN) Station: 0 (Maritza Mar RN) Exam by: Issa Narvaez CNM (Maritza Mar, MÓNICA) Membrane Status: Ruptured (Maritza Mar RN) Membranes Rupture Method: Artificial (Maritza Mar, MÓNICA) Amniotic Fluid Color: Clear (Maritza Mar, MÓNICA) Amniotic Fluid Amount: Moderate (Maritza Mar, MÓNICA) Datetime: 10/16/2016 08:52 Communication Comments: Issa Narvaez CNM at bedside (Maritza Mar, MÓNICA) Datetime: 10/16/2016 08:45 Monitor Mode: External; Palpation (Maritza Mar RN) Frequency (min): 3-4 (Marizta Zaid, RN) Quality: Mild/Moderate (Maritza Zaid, RN) Duration (sec): 60-90 (Maritza Zaid, RN) Resting Tone (Palpate): Relaxed (Maritza Zaid, RN) Monitor Mode: External US (Maritza Zaid, RN) FHR Baseline Rate : 120 (Maritza Zaid, RN) Variability: Moderate 6-25 bpm (Maritza Zaid, RN) Accelerations: 15X15 (Maritza Zaid, RN) Decelerations: None (Maritza Zaid, RN) Pitocin (milliunit): Pitocin Remains (milliunits) @ (Annotations: 8) (Maritza Zaid, RN) Datetime: 10/16/2016 08:44 NBP Sys/Olesya/Mean (mmHg): 106 (QS system process) : 56 (QS system process) : 77 (QS system process) Pulse: 47 (QS system process) LaborFlag: Antepartum (QS system process) Datetime: 10/16/2016 08:33 Communication Comments: Issa Narvaez CNteresa at bedside (Maritza Zaid, RN) Datetime: 10/16/2016 08:32 Pitocin (milliunit): Pitocin Increased to (milliunits) @ 8 (Maritza Zaid, RN) Datetime: 10/16/2016 08:31 Monitor Interventions for UA: [place] Adjusted (Maritza Zaid, RN) Monitor Interventions for FHR: Ultrasound Adjusted (Maritza Zaid, RN) Communication: RN at Bedside (Maritza Zaid, RN) Datetime: 10/16/2016 08:30 Monitor Mode: External (Maritza Zaid, RN) Frequency (min): irreg (Maritza Zaid, RN) Quality: Mild/Moderate (Maritza Zaid, RN) Resting Tone (Palpate): Relaxed (Maritza Zaid, RN) Monitor Mode: External US (Maritza Zaid, RN) FHR Baseline Rate : 125 (Maritza Zaid, RN) Variability: Moderate 6-25 bpm (Maritza Zaid, RN) Accelerations: None (Maritza Zaid, RN) Decelerations: None (Maritza Zaid, RN) Pitocin (milliunit): Pitocin Remains (milliunits) @ (Annotations: 6) (Maritza Zaid, RN) Datetime: 10/16/2016 08:15 NBP Sys/Olesya/Mean (mmHg): 99 (QS system process) : 52 (QS system process) : 71 (QS system process) Pulse: 65 (QS system process) Monitor Mode: External (Maritza Zaid, RN) Frequency (min): occ (Maritza Zaid, RN) Quality: Mild (Maritza Zaid, RN) Resting Tone (Palpate): Relaxed (Maritza Zaid, RN) Monitor Mode: External US (Maritza Zaid, RN) FHR Baseline Rate : 125 (Maritza Zaid, RN) Variability: Moderate 6-25 bpm (Maritza Zaid, RN) Accelerations: 15X15 (Maritza Zaid, RN) Decelerations: None (Maritza Zaid, RN) Pitocin (milliunit): Pitocin Remains (milliunits) @ (Annotations: 6) (Maritza Zaid, RN) LaborFlag: Antepartum (QS system process) Datetime: 10/16/2016 08:10 Pitocin (milliunit): Pitocin Increased to (milliunits) @ 6 (Maritza Zaid, RN) Datetime: 10/16/2016 08:00 Monitor Mode: External; Palpation (Maritza Zaid, RN) Frequency (min): 2-3 (Maritza Zaid, RN) Quality: Mild (Maritza Zaid, RN) Duration (sec): 60-90 (Maritza Zaid, RN) Resting Tone (Palpate): Relaxed (Maritza Zaid, RN) Monitor Mode: External US (Maritza Zaid, RN) FHR Baseline Rate : 120 (Maritza Zaid, RN) Variability: Moderate 6-25 bpm (Maritza Zaid, RN) Accelerations: 15X15 (Maritza Zaid, RN) Decelerations: None (Maritza Zaid, RN) Pitocin (milliunit): Pitocin Remains (milliunits) @ (Annotations: 4) (Maritza Zaid, RN) Datetime: 10/16/2016 07:45 Monitor Mode: External; Palpation (Maritza Zaid, RN) Frequency (min): occ (Maritza Zaid, RN) Quality: Mild (Maritza Zaid, RN) Resting Tone (Palpate): Relaxed (Maritza Zaid, RN) Monitor Mode: External US (Maritza Zaid, RN) FHR Baseline Rate : 125 (Maritza Zaid, RN) Variability: Moderate 6-25 bpm (Maritza Zaid, RN) Accelerations: 15X15 (Maritza Zaid, RN) Decelerations: None (Maritza Zaid, RN) Pitocin (milliunit): Pitocin Remains (milliunits) @ (Annotations: 4) (Maritza Zaid, RN) Datetime: 10/16/2016 07:44 NBP Sys/Olesya/Mean (mmHg): 95 (QS system process) : 51 (QS system process) : 70 (QS system process) Pulse: 60 (QS system process) LaborFlag: Antepartum (QS system process) Datetime: 10/16/2016 07:43 Pitocin (milliunit): Pitocin Increased to (milliunits) @ 4 (Maritza Zaid, RN) Datetime: 10/16/2016 07:30 Monitor Mode: External; Palpation (Maritza Zaid, RN) Frequency (min): none (Maritza Zaid, RN) Resting Tone (Palpate): Relaxed (Maritza Zaid, RN) Monitor Mode: External US (Maritza Zaid, RN) FHR Baseline Rate : 120 (Maritza Zaid, RN) Variability: Moderate 6-25 bpm (Maritza Zaid, RN) Accelerations: 15X15 (Maritza Zaid, RN) Decelerations: None (Maritza Zaid, RN) Pitocin (milliunit): Pitocin Remains (milliunits) @ (Annotations: 2) (Maritza Zaid, RN) Datetime: 10/16/2016 07:29 Level of Consciousness: Fully Conscious (Maritza Zaid, RN) Headache: Denies (Maritza Zaid, RN) Breath Sounds, Left: Clear and Equal (Maritza Zaid, RN) Breath Sounds, Right: Clear and Equal (Maritza Zaid, RN) Nausea/Vomiting: Denies (Maritza Zaid, RN) RUQ Epigastric Pain: Denies (Maritza Zaid, RN) Datetime: 10/16/2016 07:25 Pitocin (milliunit): Pitocin Started (milliunits) @ 2 (Kathy Broman, RN) Datetime: 10/16/2016 07:15 Monitor Mode: External; Palpation (Maritza Zaid, RN) Frequency (min): none (Maritza Zaid, RN) Resting Tone (Palpate): Relaxed (Maritza Zaid, RN) Monitor Mode: External US (Maritza Zaid, RN) FHR Baseline Rate : 125 (Maritza Zaid, RN) Variability: Moderate 6-25 bpm (Maritza Zaid, RN) Accelerations: 15X15 (Maritza Zaid, RN) Decelerations: None (Maritza Zaid, RN) Datetime: 10/16/2016 07:13 NBP Sys/Olesya/Mean (mmHg): 101 (QS system process) : 55 (QS system process) : 73 (QS system process) Pulse: 51 (QS system process) LaborFlag: Antepartum (QS system process) Datetime: 10/16/2016 07:00 Stage of : Antepartum (Priscilla Delgado, RN) Monitor Mode: External (Priscilla Delgado, RN) Frequency (min): irregular (Priscilla Delagdo, RN) Quality: Mild (Priscilla Delgado, RN) Duration (sec): 60-80 (Priscilla Delgado, RN) Pattern: Normal: <= 5 Contractions in 10 Minutes (Priscilla Delgado, RN) Resting Tone (Palpate): Relaxed (Priscilla Delgado RN) Monitor Mode: External US (Priscilla Delgado RN) FHR Baseline Rate : 120 (Priscilla Delgado RN) Variability: Moderate 6-25 bpm (Priscilla Delgado RN) Accelerations: 15X15 (Priscilla Delgado RN) Decelerations: None (Priscilla Delgado RN) Communication: RN Reviewed Strip (Priscilla Delgado RN)
[2016-10-16] MEDS: FAMOTIDINE 20 MG TABLET PO SCH (21:20)
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
--- NOTE | 2016-10-17 06:16 | L&D Care Plan ---
LD CARE PLANS Datetime Report Generated by CPN: 10/17/2016 06:15 Datetime: 10/16/2016 05:29 Pain State: Risk For (Priscilla Delgado RN) Related To: Labor and Delivery Process; Treatment and Procedures; Post (Priscilla Delgado RN) Goal(s): Patients Pain will be Assessed and Managed; Patient will Verbalize Adequate Relief of Pain or the Ability to [place] with Current Pain (Priscilla Delgado RN) Interventions: Assess Pain Severity on Scale of 0 (None) to 5 (Severe); Assess Type, Location and Intensity of Pain Each Time Client Reports Discomfort and Notify Provider if Unusal Pain Develops; Encourage Proper Breathing and Relaxation Techniques; Offer Alternatives Such as Repositioning, Calm Environment, Massages, Diversional Activities, Ice Pack, Splinting, and Ambulation; Administer Analgesics as Ordered; Assist with Epidural Placement as Appropriate; Evaluate Therapeutic Effectiveness of Medication and Treatments (Priscilla Delgado RN) Outcome: Patient will Report Absence or Relief of Pain Consistent with Established Pain Goal (Priscilla Delgado RN) Outcome: Patient will have a Decrease in Signs and Symptoms of Discomfort (Priscilla Delgado RN) Outcome: Pain will be Controlled During Procedures (Priscilla Delgado RN) Anxiety State: Risk For (Priscilla Delgado RN) Related To: Labor and Delivery Process; Fear of Unknown; Situational Crisis; Medical Interventions; Significant Life Event (Priscilla Delgado RN) Goal(s): Patient will have Decreased Anxiety and be able to Function at Acceptable Levels (Priscilla Delgado RN) Interventions: Assess Verbal and Nonverbal Behavioral Indicators of Anxiety; Assist Patient to Identify and Verbalize Symptoms of Anxiety; Identify and Demonstrate Techniques to Control Anxiety; Assist Patient with Coping Mechanisms to Manage Anxiety; Provide Theraputic Touch for the Patient; Explain to Patient, Using a Calm Reassuring Approach and Nonmedical Terms, All Activities, Procedures, and Concerns; Instruct Patient and Family about Post Discharge Care, Limitations, Symptoms to Report and Resources Available (Priscilla Delgado RN) Outcome: Patient will Identify, Verbalize and Demonstrate Techniques to Control Anxiety (Priscilla Delgado RN) Outcome: Patient's Posture, Facial Expressions, Gestures and Activity Level will Reflect Decreased Anxiety (Priscilla Delgado RN) Outcome: Patient will Verbalize a Sense of Control and/or Acceptance of the Situation (Priscilla Delgado RN) Outcome: Patient will Identify and Utilize Support Person (Priscilla Delgado RN) Knowledge Deficit State: Risk For (Priscilla Delgado RN) Related To: Labor and Delivery Process; Treatment and Procedures; Impending Alterations in Family Dynamics; Feeding and Infant Care; Community Resources and Available Support Mechanisms (Priscilla Delgado RN) Goal(s): Patient will Accurately Verbalize Understanding of Plan of Care and Treatment; Patient and Family will Accurately Verbalize Understanding of the Disease Process (Priscilla Delgado RN) Interventions: Assess Motivation and Willingness of Patient/Family to Learn; Assess Preferred Learning Mode: One to One Instruction, Reading, Videos, Group Discussion or Demonstration; Assess Barriers to Learning: Pain, Emotional State, Language Barrier, Cognitive Impairment, Visual or Hearing Deficits; Assess Patient and Family Knowledge of Disease Process, Medications and Treatment; Discuss Therapy and/or Treatment Options, Describe Rationale Behind Management, Therapy and Treatment Recommendations; Instruct Patient and Family on Signs and Symptoms to Report; Instruct Patient and Family on Medication Effects and Side Effects; Provide Appropriate and Timely Education Using Multiple Techniques; Provide Patient and Family with Support Group Information and Resources; Give Clear and Thorough Explanations and Demonstrations (Priscilla Delgado RN) Outcome: Patient and Family will Verbalize Understanding of Condition, Treatment and Signs and Symptoms to Report (Priscilla Delgado RN) Outcome: Patient will Identify Perceived Learning Needs and Express Motivation to Learn (Priscilla Delgado RN) Outcome: Patient will Verbalize Understanding of Desired Content, and/or Performs Desired Skill Prior to Discharge (Priscilla Delgado RN) Infection State: Risk For (Priscilla Delgado RN) Related To: Prolonged Labor or Induction; Invasive Procedures; Altered Tissue Integrity (Priscilla Delgado RN) Goal(s): The Patient will be Free of Infection, Vital Signs Stable and Lab Work within Normal Parameters (Priscilla Delgado RN) Interventions: Instruct and Reinforce Proper Handwashing, Hygiene, and Care Techniques to Patient and Family; Monitor Vital Signs; Monitor Patient for the Following Signs of Infection: Fever, Abdominal Tenderness, Unusual Discharge; Monitor Aminiotic Fluid, Urine and Lochia for Color and Odor; Observe Wounds, Incisions and Invasive Line Sites for Redness, Drainage and Edema; Assess IV Sites per Hospital Policy; Monitor Lab and Test Results and Notify Provider of Abnormal Findings; Assess Nutritional Status and Promote Good Nutrition (Priscilla Delgado RN) Outcome: Patient will Remain Free of Infection (Priscilla Delgado RN) Outcome: Infection will be Recognized Early to Allow for Prompt Treatment (Priscilla Delgado RN) Outcome: Patient will have Vital Signs Within Expected Range (Priscilla Delgado RN) Fluid Volume State: Risk For (Priscilla Delgado RN) Related To: Surgical Procedures; Disease Process; Altered Renal Function (Priscilla Delgado RN) Goal(s): Patient will Achieve and Maintain a Balanced Fluid Volume Status; Hemodynamically Stable (Priscilla Delgado RN) Interventions: Monitor Vital Signs; Auscultate Breath Sounds; Monitor Patient for Skin Turgor, Mucous Membranes, Dry Skin, Weakness, Headaches and Confusion; Provide Oral Fluids as Ordered; Initiate and Maintain Intravenous Fluids as Ordered; Monitor Intake and Output as Indicated Per Patient Status; Accurately Measure Blood Loss; Monitor Lab and Test Results as Obtained and Notify Provider of Abnormal Findings; Monitor Patient's Weight (Priscilla Delgado RN) Outcome: Patient will have Clear Lung Sounds (Priscilla Delgado RN) Outcome: Patient will have Vital Signs within Expected Range (Priscilla Delgado RN) Outcome: Urine Output will be within Expected Range (Priscilla Delgado RN) Outcome: Patient will have Minimal Generalized or Upper Extremity Edema (Priscilla Delgado RN) Injury State: Risk For (Priscilla Delgado RN) Related To: Labor and Delivery Process; Decreased Mobility; Uterine Rupture (Priscilla Delgado RN) Goal(s): Patient will Remain Free from Injury (Priscilla Delgado RN) Interventions: Monitoring as per Hospital Protocol; Assess Neurological Status; Perform Risk Assessment of Patients with Induction and ; Perform Fall Risk Assessment and Prevention per Hospital Protocol; Perform DVT Risk Assessment and Prophylaxis per Hospital Protocol; Ensure that Oxygen, Suction, and Resuscitation Medications and Equipment are Readily Available; Confirm Patient ID Prior to Procedure(s) and Medication Administration per Hospital Policy (Priscilla Delgado RN) Outcome: Successful Fall Risk Prevention (Priscilla Delgado RN) Outcome: Patient will Deliver Infant without Adverse [place]ela (Priscilla Delgado RN) Outcome: Patient's Neurological Status will Remain Stable (Priscilla Delgado RN)
[2016-10-17] MEDS: IBUPROFEN 800 MG TABLET PO SCH ×3 (06:43→21:12)
[2016-10-17 07:53] LABS: HEMATOCRIT 27.1 % (36.0-47.0); HEMOGLOBIN 9.3 g/dL (12.0-15.5); HGB HCT DIFFERENCE 0.8; MEAN CORPUSCULAR HGB CONC 34.2 g/dL (32.0-36.0); MEAN CORPUSCULAR VOLUME 85 fl (80-97); RED BLOOD COUNT 3.19 10^6/uL (3.72-5.28); RED CELL DISTRIBUTION WIDTH 13.8 % (11.5-14.0); WHITE BLOOD COUNT 11.3 10^3/uL (4.0-10.5)
[2016-10-17] MEDS: FAMOTIDINE 20 MG TABLET PO SCH ×2 (10:14→21:13)
[2016-10-17] MEDS: FERROUS SULFATE 325 MG TABLET PO SCH ×2 (10:14→17:33)
[2016-10-17] MEDS: DOCUSATE SODIUM 100 MG CAPSULE PO SCH ×2 (10:14→17:33)
[2016-10-17] MEDS: SENNOSIDES/DOCUSATE 8.6-50 MG 1 EACH TABLET PO SCH (10:15)
[2016-10-17] MEDS: PRENATAL VITAMIN W-O CA NO5/FE FUMARATE/FA CAPSULE PO SCH (10:16)
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
[2016-10-18] MEDS: IBUPROFEN 800 MG TABLET PO SCH (06:52)
[2016-10-18] MEDS: DOCUSATE SODIUM 100 MG CAPSULE PO SCH (10:15)
[2016-10-18] MEDS: PRENATAL VITAMIN W-O CA NO5/FE FUMARATE/FA CAPSULE PO SCH (10:15)
[2016-10-18] MEDS: SENNOSIDES/DOCUSATE 8.6-50 MG 1 EACH TABLET PO SCH (10:15)
[2016-10-18] MEDS: FERROUS SULFATE 325 MG TABLET PO SCH (10:15)
[2016-10-18] MEDS: FAMOTIDINE 20 MG TABLET PO SCH ×2 (10:15→10:24)
--- NOTE | 2016-10-18 11:24 | PDOC PROGRESS REPORT ---
Subjective-OB Subjective: Post Delivery Day: 30 year old. Denies any needs at this time. Physical Exam (OB) Vital Signs: Temp Pulse Resp BP Pulse Ox 97.7 F 45 L 16 95/49 L 100 10/18/16 08:11 10/18/16 08:11 10/18/16 08:11 10/18/16 08:11 10/18/16 08:11 Intake & Output 10/17/16 10/18/16 10/19/16 06:59 06:59 06:59 Intake Total 480 Balance 480 - Lochia Lochia Amount: Scant < 10 ml Lochia Color: Rubra/Red - Abdomen Description: Tender, Soft Hernia Present: No Bowel Sounds: Normoactive Flatus Presence: Present Stool: No Fundal Description: Firm, Midline Fundal Height: u/u - u/2 Objective-Diagnostic Laboratory: 10/17/16 07:40
[2016-10-18 11:37] VITALS: BP 113/59
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
--- NOTE | 2016-10-21 11:53 | Delivery Summary ---
Del Sum A-C Datetime Report Generated by CPJoan: 10/21/2016 11:53 ADMISSION DATA Chief Complaint: Scheduled Induction of Labor Indication for Induction: Post Dates Admission Impression: Term, Intrauterine ; No Active Labor; Intact Membranes; Induction of Labor Admit Provider Comments: 30yo at 41+1ega presents for scheduled IOL after being transfered care to [facility] due to chronic narcotic use, suspected opiod dependance, and non compliance with care. She was first seen at approximately 20wks for ER f/u consult. She never attended her [facility]. She as transferred to [facility] and last seen at 28+3ega. Her is complicated by poor care and no care since 28wks in addition to above. She is currently on Subutex 20mg po daily. She had 20+ ER visits during early and also has had multiple labor checks since ending her care at 28wks. Vertex presentation on US. She is currently obtaining Subutex from [facility]. Will begin Pitocin. GBS negative. Anticipate . Largest baby 6#6oz. Consider FB for cervical ripening. DELIVERY PERSONNEL Delivery Doctor:: Phuong Narvaez CNM Nurse Silk Screen Etcher Certified:: Phuong Narvaez CNM Labor and Delivery Nurse:: Maritza Mar RNcircuit court clerk Nurse:: LENCHO Sage Manager Commercial [employer]/THIRD SHIFT LIEUTENANT: Mary Ellen Ascencio CNA II Additional Personnel: : LENCHO Brown MATERNAL INFORMATION Delivery Anesthesia: None Medications After Delivery: Pitocin Bolus-Please Comment; Cytotec 600mcg Per Rectum/Vagina Meds After Delivery Comment: Pitocin 20 units in 1000 ml NSS open for bolus Estimated Blood Loss (ml): 100 Maternal Complications: Other Other Maternal Complications: subutex use Provider Comments: Pt progressed quickly from 6 to complete, rapid descent, having decelerations, Pitocin off, Oxygen, turned to R and L side, of viable female from OA to NELA over intact perineum, cord around ankle (loose), placed on mothers abd, baby pink, difficult to get baby to cry, cord clamped and cut after 2 minutes by pts partner, cord blood and cord PH sent to lab, spont del of small placenta, 3 VC, EBL = 100cc FFFM, cytotec 600mcg via rectum Baby placed in warmer for obervation and stimulation LABOR SUMMARY EDC: 10/08/2016 00:00 No. Babies in Womb: 1 Attempted: No Labor Anesthesia: None LABOR INFORMATION Reason for Induction: Post Dates Onset of Labor: 10/16/2016 08:53 Complete Dilatation: 10/16/2016 12:21 Oxytocin: Induction Group B Beta Strep: Negative Steroids Given: None Reason Steroids Not Administered: Not Applicable MEMBRANES Membranes Rupture Method: Artificial Rupture of Membranes: 10/16/2016 08:53 Length of Rupture (hr): 3.62 Amniotic Fluid Color: Clear Amniotic Fluid Amount: Moderate Amniotic Fluid Odor: Normal STAGES OF LABOR Stage 1 hr: 3 Stage 1 min: 28 Stage 2 hr: 0 Stage 2 min: 9 Stage 3 hr: 0 Stage 3 min: 5 Total Time in Labor hr: 3 Total Time in Labor min: 42 VAGINAL DELIVERY Episiotomy: None Laceration Extension: N/A Laceration Type: None Sponge Count Correct: N/A Sharps Count Correct: N/A BABY A INFORMATION Delivery Date/Time: 10/16/2016 12:30 Method of Delivery: Vaginal Born in Route : No : N/A Forceps: N/A Vacuum Extraction: N/A Shoulder Dystocia : No PRESENTATION/POSITION BABY A Presentation: Cephalic Cephalic Presentation: Vertex Vertex Position: Left Occipital Anterior Breech Presentation: N/A PLACENTA INFORMATION BABY A Placenta Delivery Time : 10/16/2016 12:35 Placenta Method of Delivery: Spontaneous Placenta Status: Delivered SCORES BABY A Heart Rate 1 min: >100 bpm Resp Effort 1 min: Slow, Irregular Reflex Irritability 1 min: Cough or Sneeze or Pulls Away Muscle Tone 1 min: Some Flexion of Extremities Color 1 min: Body [place], Extremities Blue Resuscitation Effort 1 min: Tactile Stimulation SCORE 1 MIN: 7 Heart Rate 5 min: >100 bpm Resp Effort 5 min: Slow, Irregular Reflex Irritability 5 min: Cough or Sneeze or Pulls Away Muscle Tone 5 min: Active Motion Color 5 min: Body [place], Extremities Blue Resuscitation Effort 5 min: Tactile Stimulation SCORE 5 MIN: 8 INFORMATION BABY A Gestational Age at Delivery: 41.1 Gestational Status: Late Term- 41- 41.6 Weeks Outcome : Liveborn Condition : Stable Infant Sex: Female IDENTIFICATION BABY A ID Band Number: [id number] Mother's Name Verified: Yes Infant RN Verifying : Aditya Mar RN/ DJanel Ndiaye RNC WEIGHT/LENGTH BABY A Birthweight (gm): 2769 Weight (lb): 6 Infant Weight (oz): 2 Infant Length (in): 20.00 Length (cm): 50.80 CORD INFORMATION BABY A No. Cord Vessels: 3 Nuchal Cord : N/A Cord Blood Taken: Yes-For Storage (Mom's Blood type +) Suction: Mouth; Nose ASSESSMENT BABY A Complications- Other: prolonged decels Physical Findings at Delivery: Within Normal Limits Respirations: Appears Normal Skin to Skin: No Skin to Skin Time (min): 0 Investment Banking Associate/ALS Called : Yes Care By: Marianna MUSA Transferred To: NICU
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
--- NOTE | 2016-10-22 06:00 | L&D Current Admission ---
Current Admit Datetime Report Generated by CPN: 10/22/2016 06:00 ADMISSION INFORMATION Current Admit Date/Time: 10/16/2016 03:09 (09/27/2016 14:50:Priscilla Delgado RN) Reason for Admission: Induction of Labor (10/16/2016 03:11:Maritza Mar RN) Chief Complaint: Scheduled Induction of Labor (10/16/2016 03:11:Priscilla Delgado RN) Medications During : Vitamin; Buprenorphine (Subutex); Sertraline (Zoloft) (10/16/2016 03:11:Maritza Mar RN) Meds During -Oth: Trazadone (09/27/2016 14:50:Priscilla Delgado RN) EGA per Dates: 41.1 (09/27/2016 14:50:QS system process) EGA per US: 41.1 (09/27/2016 14:50:QS system process) Method of Arrival: Ambulatory (10/16/2016 03:11:Maritza Mar RN) Admitted From: Home (10/16/2016 03:11:Maritza Mar RN) Reason for Induction: Other (10/16/2016 03:11:Maritza Mar RN) Reason for Induction- Other: post dates (10/16/2016 03:11:Maritza Mar RN) Records Available: Yes (09/27/2016 14:50:Priscilla Delgado RN) General Admission Information: Reviewed (09/27/2016 14:50:Priscilla Delgado RN) BELONGINGS/ADVANCED DIRECTIVES Other Belongings: see signed belongings consent (10/16/2016 03:11:Maritza Mar RN) Disposition of Belongings: Kept with Patient (10/16/2016 03:11:Maritza Mar RN) Comments Regarding Disposition: see belongins consent form (09/27/2016 14:50:Priscilla Delgado RN) Advance Direct for Healthcare: No, and Wants No Information (10/16/2016 03:11:Maritza Mar RN) Durable Power of Experience Specialist: No (10/16/2016 03:11:Maritza Mar RN) Living Will: No (10/16/2016 03:11:Maritza Mar RN) Organ Donor: No (10/16/2016 03:11:Maritza Mar RN) Pt Rights Information Given: Yes (10/16/2016 03:11:Maritza Mar RN) Pt Understands Pt Rights: Yes (10/16/2016 03:11:Maritza Mar RN) LEARNING ASSESSMENT Knowledge Level: Understands L_D Process; Understands Care Activities; Had Pre-Hospital Education; Understands Diagnosis (10/16/2016 03:11:Maritza Mar RN) Barriers to Learning: None (10/16/2016 03:11:Maritza Mar RN) Learning Readiness: Motivated (10/16/2016 03:11:Maritza Mar RN) Learns Best By: 1 to 1 Instruction (10/16/2016 03:11:Maritza Mar RN) Learning Needs: Labor and Delivery Process; Pain Management; Symptoms to Report; Treatment Plan; Medication; Diagnosis; Nutrition; Equipment; Care; Community Resources (10/16/2016 03:11:Maritza Mar RN) DOMESTIC VIOLANCE SCREENING Dom Viol Threatened/Hurt: No (10/16/2016 03:11:Maritza Mar RN) Hx of Abuse/Neglect past 2yrs: No (10/16/2016 03:11:Maritza Mar RN) Feel Unsafe Going Home: No (10/16/2016 03:11:Maritza Mar RN) Addt'l Observ Indicating Abuse: No (10/16/2016 03:11:Maritza Mar RN) Reason Unable to Complete Screen: N/A, Screen Completed (10/16/2016 03:11:Maritza Mar RN) Considered Personal Harm/Suicide: No (10/16/2016 03:11:Maritza Mar RN) NUTRITIONAL/FUNCTIONAL SCREENING Problem with Appetite >5 Days: No (10/16/2016 03:11:Maritza Mar RN) Chew/Swallow Difficulties: No (10/16/2016 03:11:Maritza Mar RN) Inappropriate Wt Gain/Loss: No (10/16/2016 03:11:Maritza Mar RN) Presence Skin Breakdown/Ulcer: No (10/16/2016 03:11:Maritza Mar RN) Special Diet: No (10/16/2016 03:11:Maritza Mar RN) Pt Requests Software Tester Visit: No (10/16/2016 03:11:Maritza Mar RN) Hx of Any of the Following?: N/A (10/16/2016 03:11:Maritza Mar RN) New Diagnosis of: N/A (10/16/2016 03:11:Maritza Mar RN) Requires Assist w/Ambulation: No (10/16/2016 03:11:Maritza Mar RN) Uses Assist Device to Ambulate: No (10/16/2016 03:11:Maritza Mar RN) Pt Requires Help w/ADL's: No (10/16/2016 03:11:Maritza Mar RN)
== END 2016-10-18 14:24 | disposition home or self-care (01) | DRG 775 ==
LOC: LR 02:38 → 2S 15:52
PROVIDERS: ADMIT Obstetrics & Gynecology; ATTEND Obstetrics & Gynecology
PROC: 10E0XZZ Delivery of Products of Conception, External Approach (ICD-10-PCS; principal; 2016-10-16)
PROC: 3E0P7GC Introduction of Other Therapeutic Substance into Female Reproductive, Via Natural or Artificial Opening (ICD-10-PCS; 2016-10-16)
PROC: 10907ZC Drainage of Amniotic Fluid, Therapeutic from Products of Conception, Via Natural or Artificial Opening (ICD-10-PCS; 2016-10-16)
PROC: 4A1HXCZ Monitoring of Products of Conception, Cardiac Rate, External Approach (ICD-10-PCS; 2016-10-16)
DX: O48.0 Post-term pregnancy (principal); F11.23 Opioid dependence with withdrawal; O99.344 Other mental disorders complicating childbirth; F32.9 Major depressive disorder, single episode, unspecified; T40.2X5A Adverse effect of other opioids, initial encounter; F41.9 Anxiety disorder, unspecified; O99.334 Smoking (tobacco) complicating childbirth; Z91.19 Patient's noncompliance with other medical treatment and regimen; Z28.21 Immunization not carried out because of patient refusal; Z88.0 Allergy status to penicillin; Z88.6 Allergy status to analgesic agent; Z79.899 Other long term (current) drug therapy; Z3A.41 41 weeks gestation of pregnancy; Z37.0 Single live birth
CPT/HCPCS: 36415; 80307; 81005; 82803; 85025; 85027; 86592; 86850; 86900; 86901; 88307; 94760; 99465; J2590; J3490

== ENCOUNTER 2016-12-27 16:03 | Emergency (ER) | payer MEDICAID ==
--- NOTE | 2016-12-27 16:58 | ER Document Report ---
ED General - General Chief Complaint: Ankle Swelling Stated Complaint: SWELLING OF EXTREMITIES Time Seen by Provider: 12/27/16 16:37 Mode of Arrival: Ambulatory Information source: Patient Notes: Manual female presents to ED for swelling to bilateral legs and ankles. She states is been since October 16, 2016 when she gave . Patient denies any shortness of breath. Blood pressure stable. Complains of chronic low back pain right shoulder pain. TRAVEL OUTSIDE OF THE [place] IN LAST 30 DAYS: No - HPI Onset: Other - September 18, 2016 Onset/Duration: Persistent Quality of pain: Cramping Severity: Moderate Pain Level: 4 Associated symptoms: Leg swelling, Other - Foot pain Exacerbated by: Movement, Walking Relieved by: Denies Similar symptoms previously: Yes Recently seen / treated by doctor: Yes - Related Data Allergies/Adverse Reactions: acetaminophen [From Tylenol-Codeine #3] Allergy (Verified 12/27/16 16:18) codeine [From Tylenol-Codeine #3] Allergy (Verified 12/27/16 16:18) tramadol Allergy (Verified 12/27/16 16:18) Penicillins Adverse Reaction (Verified 12/27/16 16:18) Nausea Past Medical History - General Information source: Patient - Social History Smoking Status: Current Every Day Smoker Cigarette use (# per day): Yes - Pack per day Chew tobacco use (# tins/day): No Smoking Education Provided: Yes - less than 2 minutes Frequency of alcohol use: None Drug Abuse: None Lives with: Spouse/Significant other Family History: Arthritis, CAD, Hyperlipidemia, Hypertension, Malignancy Patient has suicidal ideation: No Patient has homicidal ideation: No - Past Medical History Cardiac Medical History: Reports: None Pulmonary Medical History: Reports: Hx Bronchitis EENT Medical History: Reports: None Neurological Medical History: Reports: None Endocrine Medical History: Reports: None Renal/ Medical History: Reports: Hx Kidney Stones, Hx Ovarian Cysts Malignancy Medical History: Reports: None GI Medical History: Reports: Hx Gastritis, Hx Gastroesophageal Reflux Disease Musculoskeltal Medical History: Reports Hx Arthritis, Reports Hx Musculoskeletal Trauma Skin Medical History: Reports None Psychiatric Medical History: Reports: Hx Anxiety, Hx Depression, Hx Post Traumatic Stress Disorder Traumatic Medical History: Reports: Hx Fractures - Right arm Infectious Medical History: Reports: None Past Surgical History: Reports: Hx Abdominal Surgery - Exploratory lap-negative diagnosed interstitial cystitis, Hx Adenoidectomy, Hx Gynecologic Surgery, Hx Myringotomy, Hx Tonsillectomy - Immunizations Immunizations up to date: Yes Hx Diphtheria, Pertussis, Tetanus Vaccination: No Review of Systems - Review of Systems Constitutional: No symptoms reported EENT: No symptoms reported Cardiovascular: No symptoms reported Respiratory: No symptoms reported Gastrointestinal: No symptoms reported Genitourinary: No symptoms reported Female Genitourinary: No symptoms reported Musculoskeletal: Ankle swelling, Other - foot pain Skin: No symptoms reported Hematologic/Lymphatic: No symptoms reported Neurological/Psychological: No symptoms reported -: Yes All other systems reviewed and negative Physical Exam - Vital signs Vitals: Temp Pulse Resp BP Pulse Ox 98.2 F 64 18 123/76 98 12/27/16 16:18 12/27/16 16:18 12/27/16 16:18 12/27/16 16:18 12/27/16 16:18 Interpretation: Normal - General General appearance: Appears well, Alert - HEENT Head: Normocephalic, Atraumatic Eyes: Normal Pupils: PERRL - Respiratory Respiratory status: No respiratory distress Chest status: Nontender Breath sounds: Normal Chest palpation: Normal - Cardiovascular Rhythm: Regular Heart sounds: Normal auscultation Murmur: No - Abdominal Inspection: Normal Distension: No distension Bowel sounds: Normal Tenderness: Nontender Organomegaly: No organomegaly - Back Back: Normal, Nontender - Extremities General upper extremity: Normal inspection, Nontender, Normal color, Normal ROM , Normal temperature General lower extremity: Normal color, Normal ROM, Normal temperature, Normal weight bearing. No: Ermu's sign Ankle: Tender, Edema - minimal. No: Abrasion, Deformity, Ecchymosis, Instability, Laceration, Limited ROM, Positive Block's test, Unable to bear weight Foot: Tender, Edema - minimal, No evidence of FB. No: Abrasion, Deformity, Ecchymosis, Instability, Laceration, Metatarsal compress. pain, Nail injury, Navicular tenderness, Puncture wound, Tender 5th metatarsal, Unable to bear weight - Neurological Neuro grossly intact: Yes Cognition: Normal Orientation: AAOx4 Berry Coma Scale Eye Opening: Spontaneous Berry Coma Scale Verbal: Oriented Leia Coma Scale Motor: Obeys Commands Berry Coma Scale Total: 15 Speech: Normal Motor strength normal: LUE, RUE, LLE, RLE Sensory: Normal - Psychological Associated symptoms: Normal affect, Normal mood - Skin Skin Temperature: Warm Skin Moisture: Dry Skin Color: Normal Course - Re-evaluation Re-evalutation: 12/27/16 21:26 discussed exam and vital signs with Dr Pollard, he stated patient does not require labs but patient should follow up with primary md - Vital Signs Vital signs: Temp Pulse Resp BP Pulse Ox 98.2 F 64 18 123/76 98 12/27/16 16:18 12/27/16 16:18 12/27/16 16:18 12/27/16 16:18 12/27/16 16:18 Discharge - Discharge Clinical Impression: Peripheral edema Disposition: HOME, SELF-CARE Instructions: Edema, Peripheral ([facility]), Family Physicians / Practices Additional Instructions: Acetaminophen Acetaminophen may be taken for pain relief or fever control. It's much safer than aspirin, offering a wider range of "safe" dosages. It is safe during . Some brand names are Tylenol, Panadol, Datril, Anacin 3, Tempra, and Liquiprin. Acetaminophen can be repeated every four hours. The following are maximum recommended dosages: WEIGHT Dose Drops Elixir Chewable( 80mg) (LBS.) drprs=droppers tsp=teaspoon 6 40 mg .4 ml (1/2) 6-11 80 mg .8 ml (full) 1/2 tsp 1 tab 12-16 120 mg 1 1/2 drprs 3/4 tsp 1 1/2 tabs 17-23 160 mg 2 drprs 1 tsp 2 tabs 24-30 240 mg 3 drprs 1 1/2 tsp 3 tabs 30-35 320 mg 2 tsp 4 tabs 36-41 360 mg 2 1/4 tsp 4 1 /2 tabs 42-47 400 mg 2 1/2 tsp 5 tabs 48-53 480 mg 3 tsp 6 tabs 54-59 520 mg 3 1/4 tsp 6 1 /2 tabs 60-64 560 mg 3 1/2 tsp 7 tabs 65-70 600 mg 3 3/4 tsp 7 1 /2 tabs 71-76 640 mg 4 tsp 8 tabs 77-82 720 mg 4 1/2 tsp 9 tabs 83-88 800 mg 5 tsp 10 tabs >89 pounds or adults 650 mg to 900 mg Acetaminophen can be repeated every four hours. Maximum daily dose not to exceed 4000 mg. These maximum recommended dosages are slightly higher than the dosages written on the product container, but these dosages are very safe and well below the toxic dosage for acetaminophen. Elevate the feet Elevation will be helpful to reduce swelling. Keep feet elevated when not walking or working. FOLLOW-UP CARE: If you have been referred to a physician for follow-up care, call the physician s office for an appointment as you were instructed or within the next two days. If you experience worsening or a significant change in your symptoms, notify the physician immediately or return to the Emergency Department at any time for re-evaluation. Forms: Smoking Cessation Education, Return to Work
[2016-12-27 16:59] VITALS: BP 123/76
== END 2016-12-27 17:00 | disposition home or self-care (01) ==
LOC: ER 16:03
DX: R60.9 Edema, unspecified (principal); F17.210 Nicotine dependence, cigarettes, uncomplicated; G89.29 Other chronic pain; M54.5 Low back pain; Z87.442 Personal history of urinary calculi; Z88.6 Allergy status to analgesic agent; Z88.0 Allergy status to penicillin
CPT/HCPCS: 99283

== ENCOUNTER 2017-01-09 15:19 | Emergency (ER) | payer MEDICAID ==
[2017-01-09 17:54] LABS: ABSOLUTE EOSINOPHILS # (AUTO) 0.2 10^3/uL (0.0-0.6); ABSOLUTE LYMPHOCYTES (AUTO) 2.6 10^3/uL (0.5-4.7); ABSOLUTE MONOCYTES (AUTO) 0.6 10^3/uL (0.1-1.4); ABSOLUTE NEUT (AUTO) 4.1 10^3/uL (1.7-8.2); BASOPHILS % (AUTO) 0.6 % (0-2); EOSINOPHILS % (AUTO) 2.9 % (0-6); HEMATOCRIT 35.2 % (36.0-47.0); HEMOGLOBIN 11.5 g/dL (12.0-15.5); HGB HCT DIFFERENCE -0.7; LYMPHOCYTES % (AUTO) 34.3 % (13-45); MEAN CORPUSCULAR HEMOGLOBIN 27.6 pg (27.0-33.4); MEAN CORPUSCULAR HGB CONC 32.6 g/dL (32.0-36.0); MEAN CORPUSCULAR VOLUME 85 fl (80-97); MONOCYTES % (AUTO) 7.4 % (3-13); RED BLOOD COUNT 4.16 10^6/uL (3.72-5.28); RED CELL DISTRIBUTION WIDTH 15.5 % (11.5-14.0); SEGMENTED NEUTROPHILS % (AUTO) 54.8 % (42-78); WHITE BLOOD COUNT 7.6 10^3/uL (4.0-10.5)
--- NOTE | 2017-01-09 18:08 | RADIOLOGY REPORT (SQ) ---
EXAM DESCRIPTION: CHEST PA/LAT COMPLETED DATE/TIME: 01/09/2017 5:59 pm REASON FOR STUDY: edema COMPARISON: 01/05/2016 EXAM PARAMETERS: NUMBER OF VIEWS: two views TECHNIQUE: Digital Frontal and Lateral radiographic views of the chest acquired. RADIATION DOSE: NA LIMITATIONS: none FINDINGS: LUNGS AND PLEURA: No opacities, masses or pneumothorax. No pleural effusion. MEDIASTINUM AND HILAR STRUCTURES: No masses or contour abnormalities. HEART AND VASCULAR STRUCTURES: Heart normal size. No evidence for failure. BONES: No acute findings. HARDWARE: None in the chest. OTHER: No other significant finding. IMPRESSION: NO SIGNIFICANT RADIOGRAPHIC FINDING IN THE CHEST. TECHNICAL DOCUMENTATION: JOB ID: [id number]- All Rights Reserved
[2017-01-09 18:09] LABS: ALANINE AMINOTRANSFERASE 19 U/L (9-52); ALKALINE PHOSPHATASE 58 U/L (38-126); ANION GAP 8 (5-19); ASPARTATE AMINO TRANSFERASE 21 U/L (14-36); BILIRUBIN,DIRECT 0.3 mg/dL (0.0-0.4); BILIRUBIN,TOTAL 0.4 mg/dL (0.2-1.3); BLOOD UREA NITROGEN 9 mg/dL (7-20); CALCIUM 9.5 mg/dL (8.4-10.2); CARBON DIOXIDE 28 mmol/L (22-30); CHLORIDE 103 mmol/L (98-107); CREATININE RESULT 0.64 mg/dL (0.52-1.25); GLUCOSE 80 mg/dL (75-110); POTASSIUM 4.3 mmol/L (3.6-5.0); SODIUM 138.7 mmol/L (137-145); TOTAL PROTEIN 6.7 g/dL (6.3-8.2)
[2017-01-09 18:39] LABS: THYROID STIMULATING HORMONE 1.69 uIU/mL (0.47-4.68)
[2017-01-09 18:59] VITALS: BP 108/75
--- NOTE | 2017-01-09 19:18 | ER Document Report ---
ED Medical Screen (RME) - General Chief Complaint: Leg Swelling Stated Complaint: LEG SWELLING Time Seen by Provider: 01/09/17 17:38 Mode of Arrival: Ambulatory Information source: Patient Notes: This is a 31-year-old female that presents to the emergency room TRAVEL OUTSIDE OF THE [place] IN LAST 30 DAYS: No - HPI Onset: Last week Onset/Duration: Gradual Quality of pain: No pain Severity: None Pain Level: Denies Associated Symptoms: denies: Chest pain, Dysuria, Shortness of breath Exacerbated by: Denies Relieved by: Denies Similar symptoms previously: Yes Recently seen / treated by doctor: Yes - Related Data Smoking: Non-smoker Frequency of alcohol use: None Drug Abuse: None Allergies/Adverse Reactions: acetaminophen [From Tylenol-Codeine #3] Allergy (Verified 01/09/17 15:21) codeine [From Tylenol-Codeine #3] Allergy (Verified 01/09/17 15:21) tramadol Allergy (Verified 01/09/17 15:21) Penicillins Adverse Reaction (Verified 01/09/17 15:21) Nausea Past Medical History - General Information source: Patient - Social History Cigarette use (# per day): No Chew tobacco use (# tins/day): No Frequency of alcohol use: None Drug Abuse: None Lives with: Family Family history: Reviewed & Not Pertinent - Past Medical History Cardiac Medical History: Reports: None Pulmonary Medical History: Reports: Hx Bronchitis Neurological Medical History: Reports: None Renal/ Medical History: Reports: Hx Kidney Stones, Hx Ovarian Cysts. Denies: Hx Peritoneal Dialysis GI Medical History: Reports: Hx Gastritis, Hx Gastroesophageal Reflux Disease Musculoskeltal Medical History: Reports Hx Arthritis, Reports Hx Musculoskeletal Trauma Psychiatric Medical History: Reports: Hx Anxiety, Hx Depression, Hx Post Traumatic Stress Disorder Traumatic Medical History: Reports: Hx Fractures - Right arm Past Surgical History: Reports: Hx Abdominal Surgery - Exploratory lap-negative diagnosed interstitial cystitis, Hx Adenoidectomy, Hx Gynecologic Surgery, Hx Myringotomy, Hx Tonsillectomy - Immunizations Immunizations up to date: Yes Hx Diphtheria, Pertussis, Tetanus Vaccination: - unknown Review of Systems - Review of Systems Constitutional: denies: Chills, Fever EENT: No symptoms reported Cardiovascular: Edema. denies: Chest pain Respiratory: denies: Short of breath Gastrointestinal: No symptoms reported Genitourinary: No symptoms reported Female Genitourinary: No symptoms reported Musculoskeletal: No symptoms reported Skin: See HPI Hematologic/Lymphatic: No symptoms reported Neurological/Psychological: No symptoms reported Physical Exam - Vital signs Vitals: Temp Pulse Resp BP Pulse Ox 98.4 F 53 L 16 121/65 99 01/09/17 15:21 01/09/17 15:21 01/09/17 15:21 01/09/17 15:21 01/09/17 15:21 Notes: Physical exam: GENERAL: 1-year-old female, alert and oriented 3, no acute distress HEAD: Atraumatic, normocephalic. EYES: Pupils equal round and reactive to light, extraocular movements intact, sclera anicteric, conjunctiva are normal. ENT: TMs normal, nares patent, oropharynx clear without exudates. Moist mucous membranes. NECK: Normal range of motion, supple without lymphadenopathy or JVD. LUNGS: Breath sounds clear to auscultation bilaterally and equal. No wheezes rales or rhonchi. HEART: Regular rate and rhythm without murmurs, rubs or gallops. ABDOMEN: Soft, normoactive bowel sounds. No tenderness to palpation. No guarding, no rebound. No masses appreciated. EXTREMITIES: Normal range of motion. There is 1+ edema bilaterally in the lower extremities no clubbing or cyanosis. In the upper extremities. NEUROLOGICAL: Cranial nerves II through XII grossly intact. Normal speech, normal gait. PSYCH: Normal mood, normal affect. SKIN: Warm, Dry, normal turgor, no rashes or lesions noted. Course - Vital Signs Vital signs: Temp Pulse Resp BP Pulse Ox 98.6 F 51 L 14 108/75 97 01/09/17 18:58 01/09/17 18:58 01/09/17 18:58 01/09/17 18:58 01/09/17 18:58 - Laboratory Result Diagrams: 01/09/17 17:40 01/09/17 17:40 Laboratory results interpreted by me: 01/09/17 01/09/17 17:40 17:40 Hgb 11.5 L Hct 35.2 L RDW 15.5 H Free T4 0.61 L Doctor's Discharge - Discharge Clinical Impression: Pedal edema Condition: Stable Disposition: HOME, SELF-CARE Instructions: Edema, Peripheral ([facility]) Additional Instructions: Recommendations: As we discussed, it is recommended that you repeat your thyroid function tests in 3 months. 1 of those tests today was completely normal. The other test for the thyroid was slightly on the low side. As far as the lower extremity swelling, take the Lasix as prescribed over the next week or 2. Take the potassium as prescribed. Return to the emergency room for any shortness of breath Prescriptions: Furosemide [Lasix 20 mg Tablet] 20 mg PO QAM #14 tablet Potassium Bicarbonate/Cit AC [Potassium 25 Meq Tab Eff] 25 meq PO DAILY #10 tablet.eff Referrals: TISHA MUÑOZ MD [ACTIVE STAFF] - Follow up in 1 week
== END 2017-01-09 19:29 | disposition home or self-care (01) ==
LOC: ER 15:19
DX: R60.9 Edema, unspecified (principal); M79.89 Other specified soft tissue disorders; R07.9 Chest pain, unspecified; R30.0 Dysuria; R06.02 Shortness of breath
CPT/HCPCS: 36415; 71020; 80053; 84439; 84443; 85025; 99283